=== PATIENT | male | born 1945 | race Caucasian/White ===

== ENCOUNTER 2016-12-15 08:46 | Outpatient (CLI) | payer MEDICARE ==
--- NOTE | ~2016-12-15 | HEMODYNAMI ---
PATIENT:LA NENA MCKAY PROSPER MEDICAL RECORD: [id number] : 49 LOCATION:[address] ADMISSION DATE: 12/15/16 Generatedon:12/16/20169:20 Patient name: LA NENA MCKAY Patient #: [id number] SSN: : 1945 Date of study: 12/16/2016 Page: Of Hemodynamic Procedure Report Patient Data Patient Demographics Procedure consent was obtained First Name: LA NENA Gender: Male Last Name: NELY : 1945 [facility] Initial: PROSPER Age: 71 year(s) Patient #: [id number] Race: Unknown Additional ID: [id number] Contact details Address: [address] [place] [address] State: [place] City: [place] Zip code: [address] Admission Admission Data Admission Date: 12/15/2016 Admission Time: 8:46 Room #: 2122 Lab Results Lab Result Date: 12/16/2016 Lab Result Time: 0:00 CBC Name Units Result Min Max Hemoglobin g/dl 16.5 --(--*-)-- 13.5 17.5 Procedure Procedure Types Cath Procedure PCI Procedure Coronary Stent Initial Miscellaneous Procedures Moderate Sedation up to 15 minutes Procedure Description Procedure Date Procedure Date: 12/16/2016 Procedure Start Time: 9:06 Procedure End Time: 9:19 Procedure Staff Name Function Richardson Freeman MD Performing Physician Aleida Little RT Scrub Yomi Oconnell RN Nurse Ryan Hancock RT Monitor Procedure Data Cath Procedure Fluoroscopy Diagnostic fluoroscopy Total fluoroscopy Time: 3 time: 3 min min Diagnostic fluoroscopy Total fluoroscopy dose: 501 dose: 501 mGy mGy Contrast Material Contrast Material Type Amount (ml) Isovue 300 76 Entry Location Entry Primary Successful Side Size Upsize Upsize Entry Closure Succes sful Closure Location (Fr) 1 (Fr) 2 (Fr) Remarks Device Remarks Femoral Right 6 Fr Exoseal artery Short Estimated blood loss: 10 ml Procedure Complications No complications Procedure Medications Medication Administration Route Dosage 0.9% NaCl I.V. 100 ml/hr Oxygen NC 2 l/min Heparin Flush Bag added to field 2 bags (1000units/500ml NS) Lidocaine 2% added to field 20 Versed I.V. 1 mg Fentanyl I.V. 50 mcg Versed I.V. 1 mg Heparin Bolus I.V. 4000 units Nitroglycerin IC/IA I.C. 100 mcg Hemodynamics Rest HGB: 16.5 (g/dl) Heart Rate: 67 (bpm) Snapshots Pre Cath Intra NCS Post Cath Vital Signs Time Heart Resp SPO2 etCO2 NIBP (mmHg) Rhythm Pain Sedation Rate (ipm) (%) (mmHg) Status Level (bpm) 9:00:56 75 19 99 29.4 137/81(102) NSR 0 (11) 10(A) , No pain 9:05:39 65 17 97 29.4 128/76(94) NSR 0 (11) 10(A) , No pain 9:10:19 58 15 97 39.2 133/80(99) NSR 0 (11) 10(A) , No pain 9:14:56 75 16 93 30.9 83/53(62) NSR 0 (11) 9(A) , No pain 9:19:28 73 25 21.1 99/71(89) NSR 0 (11) 9(A) , No pain Medications Time Medication Route Dose Verified Delivered Reason Notes Effectiveness by by 8:59:42 0.9% NaCl I.V. 100 Yomi Yomi Per physician ml/hr Kourtney Oconnell RN RN 8:59:54 Oxygen NC 2 Yomi Yomi Per physician l/min Kourtney Oconnell RN RN 9:00:16 Heparin Flush added 2 Yomi Yomi used for Bag to bags Kourtney Oconnell procedure (1000units/500ml field HOME BHAT NS) 9:00:34 Lidocaine 2% added 20ml Yomi Yomi for local to vial Kourtney Oconnell anesthetic field HOME BHAT 9:05:19 Versed I.V. 1 mg Yomi Yomi for sedation Kourtney Oconnell RN RN 9:05:31 Fentanyl I.V. 50 Yomi Yomi for sedation mcg Kourtney Oconnell RN RN 9:07:00 Versed I.V. 1 mg Yomi Yomi for sedation Kourtney Oconnell RN RN 9:09:25 Heparin Bolus I.V. 4000 Yomi Yomi for units Lorigan Lorigan anticoagulation RN RN 9:13:44 Nitroglycerin I.C. 100 Yomi Bai for IC/IA mcg Kourtney Freeman MD vasodilation quill fixer Log Time Note 8:35:52 Ryan Karissa RT(R) sent for patient. Start room use. 8:42:07 Time tracking: Regular hours 8:42:13 Plan of Care:Hemodynamics will remain stable., Cardiac rhythm will remain stable., Comfort level will be maintained., Respiratory function will remain adequate., Patient/ family verbilizes understanding of procedure., Procedure tolerated without complication., Recovers from procedure without complications.. 8:44:31 H&P Date Dictated: 12/15/2016 Within 30 days and on chart., H&P Addendum completed by physician on day of procedure. (MUST COMPLETE FOR ALL OUTPATIENTS). 8:45:49 Lab Result : Hemoglobin 16.5 g/dl 8:45:57 Lab results completed and on chart. 8:54:16 Patient received from PCU to CCL 1 Alert and oriented. Tansferred to table in Supine position. 8:54:23 Warm blankets applied, and sarai hugger turned on for patient comfort. 8:54:24 Correct patient and procedure confirmed by team. 8:54:25 Signed procedure consent form obtained from patient. 8:54:26 ECG and BP/O2 sat monitors applied to patient. 8:59:42 0.9% NaCl 100 ml/hr I.V. was administered by Yomi Oconnell RN; Per physician; 8:59:54 Oxygen 2 l/min NC was administered by Yomi Oconnell RN; Per physician; 9:00:01 Vital chart was started 9:00:16 Heparin Flush Bag (1000units/500ml NS) 2 bags added to field was administered by Yomi Oconnell RN; used for procedure; 9:00:34 Lidocaine 2% 20ml vial added to field was administered by Yomi Oconnell RN; for local anesthetic; 9:03:13 Baseline sample Acquired. 9:03:18 Rhythm: sinus rhythm 9:03:19 Full Disclosure recording started 9:03:20 Pre-procedure instructions explained to patient. 9:03:21 Pre-op teaching completed and patient verbalized understanding. 9:03:25 Family in patients room. 9:03:27 Patient NPO since Midnight. 9:03:29 Is the patient allergic to Iodine/contrast media? No. 9:03:30 Is patient on blood thinner?Yes 9:03:33 ACC The patient was administered the following blood thiners within the last 24 hours: ACCPlavix 9:03:34 Patient diabetic? Yes. 9:03:35 If diabetic: On Metformin? No 9:03:37 Previous problem with sedation/anesthesia? No ? 9:03:38 Snore? Yes 9:03:39 Sleep apnea? Yes 9:03:40 Deviated septum? No 9:03:41 Opens mouth fully? Yes 9:03:42 Sticks out tongue? Yes 9:03:46 Airway obstruction? Yes Emphysema 9:03:51 Dentures? No ? 9:03:53 Pre procedure: right dorsailis pedis pulse 1+ Palpable, but thready & weak; easily obliterated 9:03:56 Patient pain scale 0/10 ?. 9:04:01 IV patent on arrival in left forearm with 0.9% NaCl at [facility]. 9:04:05 Right groin area was prepped with chlora-prep and draped in sterile fashion 9:04:06 Alarms reviewed by R. N. 9:04:07 Sharps counted by scrub and verified by R.N. 9:04:08 --------ALL STOP TIME OUT------ 9:04:08 Final Timeout: patient, procedure, and site verified with staff and physician. All members of the team are in agreement. 9:04:10 Right groin site verified by team. 9:04:14 Physical assessment completed. ASA score P 2 - A patient with mild systemic disease as per Richardson Freeman MD. 9:04:17 Sedation plan: IV Moderate Sedation Versed, Fentanyl 9:05:19 Versed 1 mg I.V. was administered by Yomi Oconnell RN; for sedation; 9:05:31 Fentanyl 50 mcg I.V. was administered by Yomi Oconnell RN; for sedation; 9:06:17 Procedure started. 9:06:26 Local anesthetic to right femoral artery with Lidocaine 2% by Richardson Freeman MD.INITIAL ACCESS ONLY 9:06:38 A 6 Fr Short sheath was inserted into the Right Femoral artery 9:06:47 Use device set Femoral PCI 9:06:48 Tegaderm 4 x 4 opened to sterile field. 9:06:49 Acist Manifold opened to sterile field. 9:06:51 Acist Syringe opened to sterile field. 9:06:51 Acist Hand Control opened to sterile field. 9:06:52 Bag Decanter opened to sterile field. 9:06:52 Medline Cath Pack opened to sterile field. 9:06:52 Terumo 6Fr [place] Sheath opened to sterile field. 9:06:53 St Jaren 260cm J .035 wire opened to sterile field. 9:06:53 Merit BasixCompak Inflation Kit opened to sterile field. 9:07:00 Versed 1 mg I.V. was administered by Yomi Oconnell RN; for sedation; 9:07:05 Oconnor Whisper J 300cm 0.014 guide wire opened to sterile field. 9:07:05 Medtronic Launcher 6Fr EBU 4.0 guide catheter opened to sterile field. 9:07:14 Study PCI Site: [place] mCirc has 90% stenosis. 9:07:17 ACC Pre-intervention ROMINA Flow is 3. 9:07:25 6 Fr EBU 4 guide catheter was inserted over the wire 9:07:32 Guide Catheter removed. unable to cannulate vessel. 9:07:44 Medtronic Launcher 6Fr EBU 3.5 SH guide catheter opened to sterile field. 9:07:52 6 Fr EBU 3.5 SH' guide catheter was inserted over the wire 9:09:25 Heparin Bolus 4000 units I.V. was administered by Yomi Oconnell RN; for anticoagulation; 9:09:46 Whisper wire advanced. 9:10:42 Wire advanced across lesion. 9:11:38 Inflation Number: 1 A [place] OTW 2.5 x 22 stent was prepped and advanced across the Mid CX. The stent was deployed at 13 DANIELA for 0:10 (min:sec). 9:11:57 Inflation number: 2 The stent balloon was then re-inflated across the Mid CX to 19 DANIELA for 0:10 (min:sec). 9:13:44 Nitroglycerin IC/IA 100 mcg I.C. was administered by Richardson Freeman MD; for vasodilation; 9:13:51 ACC Post-intervention ROMINA Flow is 3. 9:13:53 Stent catheter was removed intact over wire. 9:13:54 Wire removed. 9:13:55 Guide catheter removed. 9:14:49 Sheath removed intact; hemostasis achieved with Exoseal to the Right Femoral artery. 9:14:53 Procedure ended.(Physican Out) 9:15:05 Fluoroscopy time 03.00 minutes. 9:15:09 Fluoroscopy dose: 501 mGy 9:15:09 Flurop Dose total: 501 9:15:33 Contrast amount:Isovue 300 76ml. 9:15:35 Sharps counted by scrub and verified by R.N. 9:15:37 Insertion/operative site no bleeding no hematoma. 9:15:45 Post-op/insertion site Right Femoral artery dressed using a 4 x 4 and Tegaderm. 9:15:46 Post Procedure Pulses reassessed and unchanged 9:15:49 Post-procedure physical assessment completed. ASA score P 2 - A patient with mild systemic disease as per Richardson Freeman MD. 9:15:52 Post procedure rhythm: unchanged. 9:15:56 Estimated blood loss: 10 ml 9:15:58 Post procedure instruction explained to patient.Patient verbalizes understanding. 9:15:59 Patient needs reinforcement of post procedure teaching. 9:16:09 Procedure type changed to Cath procedure, PCI procedure, Coronary Stent Initial, Miscellaneous Procedures, Moderate Sedation up to 15 minutes 9:16:10 Procedure and supply charges have been captured, reviewed, submitted and are correct. 9:16:13 Procedure Complication : No complications 9:16:37 Cordis 6Fr Exoseal opened to sterile field. 9:19:19 Vital chart was stopped 9:19:20 See physician's report for complete and final results. 9:19:24 Report given to PCU. 9:19:29 Patient transfered to PCU with Bed. 9:19:31 Procedure ended. 9:19:31 Full Disclosure recording stopped 9:19:34 End room use (Document Last) Intervention Summary Intervention Notes Time ActionType Lesion and Equipment Action# Pressure Duration Attributes Used 9:11:38 Place stent Mid CX [place] OTW 1 13 00:10 2.5 x 22 stent 9:11:57 Reinflate Mid CX Leandro OTW 2 19 00:10 stent 2.5 x 22 balloon stent Device Usage Item Name Manufacture Quantity Catalog Hospital Part Current Minimal Lot# / Number Charge Number Stock Stock Serial# Code Tegaderm 4 1 [id number] 5 x 4 Acist Acist 1 07503 708054 [id number] 156023 5 Manifold [employer] Inc Acist Acist 1 32735 642123 065103 875746 20 Syringe Medical Systems Inc Acist Hand Acist 1 05059 257480 268710 006539 5 Control Medical Systems Inc Bag Microtek 1 2002S 990196 30899 206991 5 Decanter Medical Inc. Medline Cardinal 1 [id number] 120496 18980 342558 5 Cath Pack Health Terumo 6Fr Terumo 1 [id number] 725521 102233 844260 [address] Jaren 1 873207 095877 025666 309960 30 260cm J .035 wire Merit Merit 1 [id number] 697708 868072 405996 15 BasixCompak Medical Inflation Kit Oconnor Oconnor 1 [id number] 059166 022316 476030 5 Whisper J Vascular 300cm 0.014 guide wire Medtronic Medtronic 1 [id number] 314049 60688 911047 1 Launcher 6Fr EBU 4.0 guide catheter Medtronic Medtronic 1 [id number] 430494 07842 385909 1 Launcher 6Fr EBU 3.5 SH guide catheter Leandro OTW Medtronic 1 [id number] 242548 70617 991401 5 [id number] 2.5 x 22 stent Cordis 6Fr Cardinal 1 [id number] 205398 942019 800804 10 [facility] Signature Audit Melvin Stage Time Signature Unsigned Intra-Procedure 12/16/2016 Ryan Hancock 9:20:01 AM RT(R) Signatures Monitor : Ryan Hancock RT Signature : Date : Time : [place] [id number] [place] [id number]
--- NOTE | ~2016-12-15 | HEMODYNAMI ---
PATIENT:LA NENA MCKAY PROSPER MEDICAL RECORD: [id number] : 49 LOCATION:D. D.2122 ADMISSION DATE: 12/15/16 Generatedon:12/15/201611:17 Patient name: LA NENA MCKAY Patient #: [id number] SSN: : 1945 Date of study: 12/15/2016 Page: Of Hemodynamic Procedure Report Patient Data Patient Demographics Procedure consent was obtained First Name: LA NENA Gender: Male Last Name: NELY : 1945 Middle Initial: PROSPER Age: 71 year(s) Patient #: [id number] Race: Unknown Additional ID: [id number] Contact details Address: [address] [place] [address] State: [place] City: [place] Zip code: [address] Admission Admission Data Admission Date: 12/15/2016 Admission Time: 8:46 Procedure Procedure Types Cath Procedure Diagnostic Procedure LHC LHC w/Coronaries PCI Procedure Coronary Stent Initial PTCA Additional Miscellaneous Procedures Moderate Sedation up to 30 minutes Procedure Description Procedure Date Procedure Date: 12/15/2016 Procedure Start Time: 10:48 Procedure End Time: 11:16 Procedure Staff Name Function Richardson Freeman MD Performing Physician Yomi Oconnell RN Nurse Ryan Hancock RT Monitor Aleida Little RT Scrub Samuel Christensen RN Director [employer] Procedure Data Cath Procedure Fluoroscopy Diagnostic fluoroscopy Total fluoroscopy Time: 7.3 time: 7.3 min min Diagnostic fluoroscopy Total fluoroscopy dose: dose: 1221 mGy 1221 mGy Contrast Material Contrast Material Type Amount (ml) Isovue 300 137 Entry Location Entry Primary Successful Side Size Upsize Upsize Entry Closure Goyal ccessful Closure Location (Fr) 1 (Fr) 2 (Fr) Remarks Device Remarks Radial Right 6 Fr Mechanical artery Short Compression Estimated blood loss: 10 ml Diagnostic catheters Device Type Used For End Catheter Placement Diagnostic Terumo 5Fr Procedure Willamina 110cm catheter Diagnostic Infinity 5Fr Procedure AR 2 MOD catheter Procedure Complications No complications Procedure Medications Medication Administration Route Dosage 0.9% NaCl I.V. 100 ml/hr Oxygen NC 2 l/min Lidocaine 2% added to field 20 Heparin Flush Bag added to field 2 bags (1000units/500ml NS) Radial Cocktail added to field 1 syringe (Verapomil 2mg/Nitro 400mcg/Heparin 1500units) Versed I.V. 0.5 mg Fentanyl I.V. 25 mcg Radial Cocktail I.A. 1 syringe (Verapomil 2mg/Nitro 400mcg/Heparin 1500units) Heparin Bolus I.V. 4000 units Integrilin (Bolus I.V. 9.5 ml 2mg/ml) Integrilin (Bolus wasted 0.5 ml 2mg/ml) Plavix P.O. 600 mg Hemodynamics Rest Heart Rate: 59 (bpm) Snapshots Pre Cath Intra NCS Post Cath Vital Signs Time Heart Resp SPO2 etCO2 NIBP (mmHg) Rhythm Pain Sedation Rate (ipm) (%) (mmHg) Status Level (bpm) 10:42:02 58 22 95 31.8 171/40(66) NSR 0 (11) 10(A) , No pain 10:46:51 58 22 98 18.2 163/91(134) NSR 0 (11) 10(A) , No pain 10:51:34 62 20 100 28 115/73(96) NSR 0 (11) 9(A) , No pain 10:56:14 67 19 88 14.4 126/79(91) NSR 0 (11) 9(A) , No pain 11:00:57 67 21 94 34.9 140/81(113) NSR 0 (11) 9(A) , No pain 11:05:40 64 18 95 31.8 112/69(88) NSR 0 (11) 9(A) , No pain 11:10:20 63 17 18.9 114/75(93) NSR 0 (11) 10(A) , No pain 11:15:20 63 17 30.3 Measuring NSR 0 (11) 9(A) , No pain 11:15:38 64 18 32.6 141/86(127) NSR 0 (11) 9(A) , No pain Medications Time Medication Route Dose Verified Delivered Reason Note s Effectiveness by by 10:40:49 0.9% NaCl I.V. 100 Yomi Yomi Per physician ml/hr Kourtney Oconnell RN RN 10:41:00 Oxygen NC 2 l/min Yomi Yomi Per physician Kourtney Oconnell RN RN 10:41:08 Lidocaine 2% added 20ml Yomi Yomi for local to vial Kourtney Oconnell anesthetic field RN RN 10:41:24 Heparin Flush added 2 bags Yomi Yomi used for Bag to Kourtney Oconnell procedure (1000units/500ml field RN RN NS) 10:41:59 Radial Cocktail added 1 Yomi Yomi for (Verapomil to syringe Kourtney Oconnell vasodilation 2mg/Nitro field RN RN 400mcg/Heparin 1500units) 10:48:39 Versed I.V. 0.5 mg Yomi Yomi for Lorigan Kourtney vasodilation RN RN 10:48:52 Fentanyl I.V. 25 mcg Yomi Yomi for sedation Kourtney Oconnell RN RN 10:50:43 Radial Cocktail I.A. 1 Yomi Richardson for (Verapomil syringe Kourtney Freeman MD vasodilation 2mg/Nitro RN 400mcg/Heparin 1500units) 11:00:40 Heparin Bolus I.V. 4000 Yomi Richardson for units Kourtney Freeman MD anticoagulation RN 11:01:00 Integrilin I.V. 9.5 ml Yomi Bai for (Bolus 2mg/ml) Kourtney Freeman MD antiplatelet RN therapy 11:08:20 Integrilin wasted 0.5 ml Yomi Richardson to sharp's (Bolus 2mg/ml) Kourtney Freeman MD RN 11:12:23 Plavix P.O. 600 mg Yomi Richardson for Kourtney Freeman MD antiplatelet RN therapy Procedure Log Time Note 10:15:15 Samuel Christensen RN sent for patient. Start room use. 10:24:16 Time tracking: Regular hours 10:24:20 Plan of Care:Hemodynamics will remain stable., Cardiac rhythm will remain stable., Comfort level will be maintained., Respiratory function will remain adequate., Patient/ family verbilizes understanding of procedure., Procedure tolerated without complication., Recovers from procedure without complications.. 10:31:45 Patient received from Pre/Post Procedure Room to CCL 1 Alert and oriented. Tansferred to table in Supine position. 10:31:46 Warm blankets applied, and sarai hugger turned on for patient comfort. 10:31:47 Correct patient and procedure confirmed by team. 10:31:48 Signed procedure consent form obtained from patient. 10:31:51 ECG and BP/O2 sat monitors applied to patient. 10:40:46 Vital chart was started 10:40:49 0.9% NaCl 100 ml/hr I.V. was administered by Yomi Oconnell RN; Per physician; 10:41:00 Oxygen 2 l/min NC was administered by Yomi Oconnell RN; Per physician; 10:41:08 Lidocaine 2% 20ml vial added to field was administered by Yomi Oconnell RN; for local anesthetic; 10:41:19 Rhythm: sinus rhythm 10:41:20 Full Disclosure recording started 10:41:24 Heparin Flush Bag (1000units/500ml NS) 2 bags added to field was administered by Yomi Oconnell RN; used for procedure; 10:41:28 H&P Date Dictated: 12/01/2016 Within 30 days and on chart., H&P Addendum completed by physician on day of procedure. (MUST COMPLETE FOR ALL OUTPATIENTS). 10:41:29 Pre-procedure instructions explained to patient. 10:41:29 Pre-op teaching completed and patient verbalized understanding. 10:41:31 Family in waiting room. 10:41:32 Patient NPO since Midnight. 10:41:36 Baseline sample Acquired. 10:41:41 Is the patient allergic to Iodine/contrast media? No. 10:41:42 Is patient on blood thinner?No 10:41:59 Radial Cocktail (Verapomil 2mg/Nitro 400mcg/Heparin 1500units) 1 syringe added to field was administered by Yomi Oconnell RN; for vasodilation; 10:42:05 Patient diabetic? Yes. 10:42:07 If diabetic: On Metformin? No 10:42:09 Previous problem with sedation/anesthesia? No ? 10:42:13 Snore? Yes 10:42:16 Sleep apnea? Yes 10:42:18 Deviated septum? No 10:42:19 Opens mouth fully? Yes 10:42:20 Sticks out tongue? Yes 10:42:26 Airway obstruction? Yes Emphysema 10:42:33 Dentures? No ? 10:42:36 Pre procedure: right dorsailis pedis pulse 1+ Palpable, but thready & weak; easily obliterated 10:42:41 Modified Lonnie's test Ulnar < 7 seconds 10:42:43 Patient pain scale 0/10 ?. 10:42:46 IV patent on arrival in left forearm with 0.9% NaCl at [facility]. 10:42:49 Lab results completed and on chart. 10:42:53 Right Radial & Right Groin area was prepped with chlora-prep and draped in sterile fashion 10:42:55 Alarms reviewed by R. N. 10:42:55 Sharps counted by scrub and verified by R.N. 10:43:00 --------ALL STOP TIME OUT------ 10:43:01 Final Timeout: patient, procedure, and site verified with staff and physician. All members of the team are in agreement. 10:43:06 Right Radial & Right Groin site verified by team. 10:43:08 Physical assessment completed. ASA score P 2 - A patient with mild systemic disease as per Richardson Freeman MD. 10:43:13 Sedation plan: IV Moderate Sedation Versed, Fentanyl 10:45:29 Use device set Radial Dx 10:45:30 Tegaderm 4 x 4 opened to sterile field. 10:45:31 Acist Hand Control opened to sterile field. 10:45:31 Acist Manifold opened to sterile field. 10:45:32 Acist Syringe opened to sterile field. 10:45:33 Medline Cath Pack opened to sterile field. 10:45:33 Bag Decanter opened to sterile field. 10:45:34 Terumo 6Fr Slender Glidesheath opened to sterile field. 10:45:34 St Jaren 260cm J .035 wire opened to sterile field. 10:45:34 MBrace Wrist Support opened to sterile field. 10:48:39 Versed 0.5 mg I.V. was administered by Yomi Oconnell RN; for vasodilation; 10:48:42 Procedure started. 10:48:47 Local anesthetic to right radial artery with Lidocaine 2% by Richardson Freeman MD.INITIAL ACCESS ONLY 10:48:52 Fentanyl 25 mcg I.V. was administered by Yomi Oconnell RN; for sedation; 10:49:36 A 6 Fr Short sheath was inserted into the Right Radial artery 10:50:43 Radial Cocktail (Verapomil 2mg/Nitro 400mcg/Heparin 1500units) 1 syringe I.A. was administered by Richardson Freeman MD; for vasodilation; 10:51:01 A Diagnostic Terumo 5Fr Willamina 110cm catheter was advanced over the wire and used for Procedure. 10:51:14 LV angiography performed. 10:51:19 LV gram done using FERNANDO 10:51:34 EF : 55 % 10:51:37 Injector settings: Ml/sec: 7, Volume: 15, 10:52:10 Catheter exchanged over wire. 10:53:10 A Diagnostic Infinity 5Fr AR 2 MOD catheter was advanced over the wire and used for Procedure. 10:54:07 RCA angiography performed. 10:54:52 Catheter exchanged over wire. 10:55:07 Cordis 6FR XB 4.0 guide catheter opened to sterile field. 10:55:17 6 Fr XB 4 guide catheter was inserted over the wire 10:55:28 Guide removed, damaged. 10:55:51 Cordis 6FR XBLAD 4.0 guide catheter opened to sterile field. 10:55:58 6 Fr XBLAD 4 guide catheter was inserted over the wire 10:56:44 LCA angiography performed. 10:56:54 8bit BasixCompak Inflation Kit opened to sterile field. 10:56:55 Oconnor Whisper J 300cm 0.014 guide wire opened to sterile field. 10:59:48 Whisper wire advanced. 10:59:55 Study PCI Site: [place] mLAD has 95% stenosis. 11:00:01 Study PCI Site: [place] dLAD has 95% stenosis. 11:00:03 ACC Pre-intervention ROMINA Flow is 3. 11:00:06 Wire advanced across lesion. 11:00:40 Heparin Bolus 4000 units I.V. was administered by Richardson Freeman MD; for anticoagulation; 11:00:59 Inflation Number: 1 A Pomeroy OTW 2.25 x 08 stent was prepped and advanced across the Dist LAD. The stent was deployed at 21 DANIELA for 0:10 (min:sec). 11:01:00 Integrilin (Bolus 2mg/ml) 9.5 ml I.V. was administered by Richardson Freeman MD; for antiplatelet therapy; 11:01:43 Stent catheter was removed intact over wire. 11:04:29 Inflation Number: 1 A Pomeroy OTW 2.5 x 22 stent was prepped and advanced across the Mid LAD. The stent was deployed at 17 DANIELA for 0:10 (min:sec). 11:05:20 Wire redirected to DIAG. 11:05:22 Stent catheter was removed intact over wire. 11:06:05 Inflation number: 1 A Euphora 1.5 x 6 Balloon was prepped and advanced across the 2nd Diag, then inflated to 21 DANIELA for 0:10 (min:sec). 11:06:42 Multiple inflations made at 21 Atms. 11:07:00 Balloon removed over the wire. 11:07:01 Wire removed. 11:07:02 Guide catheter removed. 11:07:05 ACC Post-intervention ROMINA Flow is 3. 11:07:16 Terumo TR Band Standard opened to sterile field. 11:08:20 Integrilin (Bolus 2mg/ml) 0.5 ml wasted was administered by Richardson Freeman MD; to sharp's; 11:08:39 Sheath removed intact; hemostasis achieved with Mechanical Compression to the Right Radial artery. 11:08:46 Procedure ended.(Physican Out) 11:09:04 TR band inflated with 12cc of air. 11:10:09 Fluoroscopy time 07.30 minutes. 11:10:12 Fluoroscopy dose: 1221 mGy 11:10:12 Flurop Dose total: 1221 11:10:16 Contrast amount:Isovue 300 137ml. 11:10:18 Sharps counted by scrub and verified by R.N. 11:10:20 Insertion/operative site no bleeding no hematoma. 11:10:22 Post Procedure Pulses reassessed and unchanged 11:10:25 Post-procedure physical assessment completed. ASA score P 2 - A patient with mild systemic disease as per Richardson Freeman MD. 11:10:27 Post procedure rhythm: unchanged. 11:10:30 Estimated blood loss: 10 ml 11:10:33 Post procedure instruction explained to patient.Patient verbalizes understanding. 11:10:33 Patient needs reinforcement of post procedure teaching. 11:10:49 Procedure type changed to Cath procedure, Diagnostic procedure, LHC, LHC w/Coronaries, PCI procedure, Coronary Stent Initial, PTCA Additional, Miscellaneous Procedures, Moderate Sedation up to 30 minutes 11:10:52 Procedure Complication : No complications 11:11:42 Procedure and supply charges have been captured, reviewed, submitted and are correct. 11:12:23 Plavix 600 mg P.O. was administered by Richardson Freeman MD; for antiplatelet therapy; 11:16:40 Vital chart was stopped 11:16:41 See physician's report for complete and final results. 11:16:43 Report given to PCU. 11:16:46 Patient transfered to PCU with Bed. 11:16:49 Procedure ended. 11:16:49 Full Disclosure recording stopped 11:16:54 End room use (Document Last) Intervention Summary Intervention Notes Time ActionType Lesion and Equipment Action# Pressure Duration Attributes Used 11:00:59 Place stent Dist LAD Leandro OTW 1 21 00:10 2.25 x 08 stent 11:04:29 Place stent Mid LAD Leandro OTW 1 17 00:10 2.5 x 22 stent 11:06:05 Inflate 2nd Diag Euphora 1 21 00:10 balloon 1.5 x 6 Balloon Device Usage Item Name Manufacture Quantity Catalog Hospital Part Current Minimal Lot# / Number Charge Number Stock Stock Serial# Code Tegade 4 1 [id number] 611535 629801 5 x 4 Acist Hand Acist 1 57853 185180 889958 689020 5 Control Medical Systems Inc Acist Acist 1 54163 895278 921676 488242 5 Manifold Medical Systems Inc Acist Acist 1 60742 652178 632871 501818 20 Syringe Medical Systems Inc Medline Cardinal 1 [id number] 102104 71474 026015 5 Cath Pack Health Bag Microtek 1 2002S 526161 74986 507779 5 Decanter Medical Inc. Terumo 6Fr Terumo 1 [id number] 226110 056465 180056 [address] St Jaren 1 554774 147998 742486 108610 30 260cm J .035 wire MBrace Advanced 1 140-0250-00 533105 49357 590723 5 Wrist Vascular Support Dynamics Diagnostic Terumo 1 99-7920 717828 223961 015900 5 Terumo 5Fr Willam[place] 110cm catheter Diagnostic Cardinal 1 [id number] 252304 261928 419289 20 Purewire 5Fr AR 2 MOD catheter Cordis 6FR Cardinal 1 [id number] 552294 893627 835322 2 XB 4.0 Health guide catheter Cordis 6FR Cardinal 1 [id number] 003394 382227 058415 3 XBLAD 4.0 Health guide catheter [facility] Merit 1 [id number] 408757 643483 230479 15 BasixCurrencyFair Medical Inflation Kit Oconnor Oconnor 1 [id number] 458756 368883 701260 5 Whisper J Vascular 300cm 0.014 guide wire Pomeroy OTW Medtronic 1 [id number] 365225 08126 904567 5 [id number] 2.25 x 08 stent Leandro OTW Medtronic 1 [id number] 060492 18525 535244 5 [id number] 2.5 x 22 stent Euphora 1.5 Medtronic 1 [id number] 679876 591925 517818 5 [id number] x 6 Balloon Terumo TR Terumo 1 [id number] 627995 181069 341846 40 Band Standard Signature Audit [place] Stage Time Signature Unsigned Intra-Procedure 12/15/2016 Ryan Hancock 11:17:15 AM RT(R) Signatures Monitor : Ryan Hancock RT Signature : Date : Time : [id number] [place] [address]
[2016-12-15] MEDS ORDERED: SPIRIVA RESPIMAT4 G1 INH (08:56)
[2016-12-15] MEDS ORDERED: RANEXA1000 MG PO (08:57)
[2016-12-15] MEDS ORDERED: ADVAIR HFA [SP]12 GM INH (08:57)
[2016-12-15] MEDS ORDERED: STARLIX120 MG PO (08:58)
[2016-12-15] MEDS ORDERED: BAYER CHEWABLE81 MG PO (08:58)
[2016-12-15] MEDS ORDERED: TOPROL XL50 MG PO (08:59)
[2016-12-15] MEDS ORDERED: LOSARTAN POTASS25 MG PO (08:59)
[2016-12-15] MEDS ORDERED: NEXIUM40 MG PO (08:59)
[2016-12-15] MEDS ORDERED: JANUVIA100 MG PO (09:00)
[2016-12-15] MEDS ORDERED: EFFEXOR XR150 MG PO (09:00)
[2016-12-15] MEDS ORDERED: SINGULAIR10 MG PO (09:01)
[2016-12-15] MEDS ORDERED: LANTUS INSULIN10 ML SC (09:01)
[2016-12-15] MEDS ORDERED: COREG6.25 MG PO (09:02)
[2016-12-15] MEDS ORDERED: PLAVIX75 MG PO (09:02)
[2016-12-15 09:12] VITALS: BP 177/89; BMI 32.5
[2016-12-15 09:24] LABS: BASOPHILS 0.5 % (0-2); EOSINOPHILS 1.8 % (0-7); HEMATOCRIT 48.6 % (42.0-54.0); HEMOGLOBIN 16.5 g/dL (13.5-17.5); IMMATURE GRANULOCYTES 0.7 % (0-5); LYMPHOCYTES 19.6 % (15-50); MCH 30.2 pg (26.0-34.0); MCV 88.8 fL (80.0-100.0); MEAN PLATELET VOLUME 10.5 fL (7.4-10.4); MONOCYTES 10.3 % (2-11); NEUTROPHILS 67.1 % (40-80); PLATELET COUNT 216 10x3/uL (130-400); RBC 5.47 10x6/uL (4.20-6.10); WBC 8.5 10x3/uL (4.8-10.8)
[2016-12-15 09:50] LABS: ANION GAP 13.1 mmol/L (8-16); CALCIUM 9.5 mg/dL (8.5-10.1); CARBON DIOXIDE 25.8 mmol/L (21.0-32.0); CREATININE - SERUM 1.5 mg/dL (0.6-1.3); POTASSIUM - SERUM 3.9 mmol/L (3.5-5.1)
--- NOTE | 2016-12-15 11:25 | NUR ---
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 RIGHT WRIST STABLE WITH TR BAND INTACT. WILL MONITOR.
[2016-12-15 11:52] VITALS: BP 145/79; BMI 32.5
[2016-12-15 12:14] VITALS: BP 142/81
[2016-12-15 17:13] VITALS: BP 104/66
[2016-12-15 20:12] VITALS: BP 123/75
--- NOTE | 2016-12-15 22:51 | NUR ---
PT LYING ON HIS BACK, EYES CLOSED, RESPIRATIONS EVEN AND UNLABORED. CONTINUE TO MONITOR CLOSELY.
[2016-12-16 00:36] VITALS: BP 107/68
[2016-12-16 04:20] VITALS: BP 172/85
--- NOTE | 2016-12-16 06:37 | NUR ---
PATIENT IS ALERT RESTING IN BED, DENIES NEEDS OR PAIN AT THIS TIME. CALL LIGHT IN REACH.
[2016-12-16 08:14] VITALS: BP 94/54
--- NOTE | 2016-12-16 08:40 | NUR ---
PRE-OPS GIVEN. TO MORTGAGE LOAN ASSISTANT BY BED.
--- NOTE | 2016-12-16 09:36 | NUR ---
BACK FROM STRETCH MACHINE OPERATOR. VS WNL. RIGHT GROIN STABLE WITHOUT BLEEDING OR HEMATOMA NOTED. WILL MONITOR.
--- NOTE | 2016-12-16 13:05 | NUR ---
BED REST UP. GROIN STABLE.
--- NOTE | 2016-12-16 13:37 | NUR ---
IV AND TELEMETRY DCD. DC PLANS GIVEN. UNDERSTANDING VOICED. ESCORTED TO CAR BY W/C.
--- NOTE | 2016-12-25 16:56 | OP ---
PATIENT NAME: LA NENA MCKAY MEDICAL RECORD: [id number] :49 LOCATION:D.CAT ADMISSION DATE: SURGEON: TIN SCOTT MD DATE OF OPERATION: 12/16/2016 PROCEDURES: 1. PTCA and stent of left circumflex. 2. Selective coronary angiography. INDICATION: Angina and coronary artery disease. PROCEDURE IN DETAIL: After informed consent was obtained and after detailed explanation of risks, benefits as well as alternative therapies, the patient elected to proceed with angiogram and angioplasty. The right femoral area was prepped and draped in normal sterile fashion. The right femoral artery was cannulated via modified Seldinger technique with placement of 6-Mexican sheath. All catheters exchanged through this sheath. FINDINGS: The left circumflex has 90% stenosis in the mid vessel. This was addressed with a 2.5 x 22 mm Leandro. Result was 0% residual stenosis. OVERALL IMPRESSION: Successful PTCA and stent of the left circumflex going from 90% initial stenosis to 0% residual. TRANSINT:[id number] Voice Confirmation ID: [id number] DOCUMENT ID: [id number] TIN SCOTT MD at 1656 CC: [id number] DICTATION DATE: 12/16/16917 PACKAGING MANAGER: 12/16/16 1219 [facility] CLI 12/16/16 [id number] [place] [address]
--- NOTE | 2016-12-25 16:56 | DS ---
PATIENT:LA NENA MCKAY :49 MEDICAL RECORD: [id number] DISCHARGE SUMMARY ADMISSION DATE: 12/15/16 DISCHARGE DATE: 12/16/16 DISCHARGE DIAGNOSES: 1. Angina. 2. Coronary artery disease. 3. PTCA and stent in LAD and left circumflex on this admission. HOSPITAL COURSE: Mr. Mckay presents with anginal symptomatology. Found to have 2-vessel coronary artery disease of LAD and circumflex. He underwent successful PTCA and stent of above territories. He had an uneventful postop course. He was discharged home to follow up with [facility] in one month with the addition of aspirin and Plavix to his medical regimen. TRANSINT:[id number] Voice Confirmation ID: [id number] DOCUMENT ID: [id number] TIN SCOTT MD at 1656 CC: [id number] DICTATION DATE: 12/16/16 0919 GEODESIST: 12/16/16 1513 [facility] CLI 12/16/16 [id number] [place] [address]
--- NOTE | 2016-12-25 16:56 | OP ---
PATIENT NAME: LA NENA MCKAY MEDICAL RECORD: [id number] :49 LOCATION:D.CAT ADMISSION DATE: SURGEON: TIN SCOTT MD DATE OF OPERATION: 12/15/2016 PROCEDURES: 1. PTCA stent to LAD. 2. PTCA to LAD diagonal. 3. Left heart catheterization. 4. Selective coronary angiography. 5. Left ventriculogram. INDICATION: Angina and coronary artery disease. PROCEDURE IN DETAIL: After informed consent was obtained and after a detailed explanation of the risks, benefits as well as alternative therapies, the patient elected to proceed with angiogram and angioplasty. The right radial area was prepped and draped in normal sterile fashion. The right radial artery was cannulated via modified Seldinger technique with placement of 6-Malagasy sheath. All catheters exchanged through this sheath. FINDINGS: Left ventriculogram was performed in standard 30-degree FERNANDO view, reveals good cardiac wall motion throughout all segments. Overall ejection fraction estimated at 55-60%. SELECTIVE CORONARY ANGIOGRAPHY: 1. Left main is with no significant angiographic disease. 2. Left anterior descending has previously placed stents in the LAD and LAD diagonal, both have up to 90% in-stent restenosis. 3. Left circumflex has 90% stenosis in the mid vessel. 4. Right coronary has [id number]-rlvvexpa irregularities, but no flow-limiting stenosis. PTCA STENT OF THE LAD: The stents used were 2.25 x 8 and 2.5 x 22, both Leandro stents. The diagonal was ballooned with a 1.5 balloon. Result was 0% residual throughout. OVERALL IMPRESSION: Successful percutaneous transluminal coronary angioplasty stent of the left anterior descending going from 90% initial stenosis to 0% residual stenosis. PLAN: PTCA stent of the left circumflex in the near future. TRANSINT:[id number] Voice Confirmation ID: [id number] DOCUMENT ID: [id number] TIN SCOTT MD at 1653 CC: [id number] DICTATION DATE: 12/15/16 1113 SHINE WORKER: 12/15/16 1126 [facility] CLI 12/16/16 [place] [address]
== END 2016-12-16 13:39 | disposition home or self-care (01) ==
LOC: D.M2 08:46 → D.CATH 08:46 → D.M2 11:08 → D.CLR 15:11 → D.M2 15:12 → D.CATH 12-16 13:39
PROVIDERS: Internal Medicine Interventional Cardiology
DX: I25.119 Atherosclerotic heart disease of native coronary artery with unspecified angina pectoris (principal); Z01.812 Encounter for preprocedural laboratory examination
CPT/HCPCS: 93458; 92921; C9600 ×2

== ENCOUNTER 2017-08-03 15:31 | Emergency (ER) | payer MEDICARE ==
[~2017-08-03] VITALS: Ht 180.3 cm; Wt 109.5 kg
[~2017-08-03 15:31] MED LIST: ADVAIR HFA [SP]12 GM INH; BAYER CHEWABLE81 MG PO; COREG6.25 MG PO; EFFEXOR XR150 MG PO; JANUVIA100 MG PO; LANTUS INSULIN10 ML SC; LOSARTAN POTASS25 MG PO; NEXIUM40 MG PO; PLAVIX75 MG PO; RANEXA1000 MG PO; SINGULAIR10 MG PO; SPIRIVA RESPIMAT4 G1 INH; STARLIX120 MG PO; TOPROL XL50 MG PO
[2017-08-03 15:39] VITALS: Ht 180.3 cm; Wt 109.5 kg
[2017-08-03 16:26] LABS: BASOPHILS 0.4 % (0-2); EOSINOPHILS 1.9 % (0-7); HEMATOCRIT 46.7 % (42.0-54.0); HEMOGLOBIN 15.9 g/dL (13.5-17.5); IMMATURE GRANULOCYTES 0.5 % (0-5); LYMPHOCYTES 18.5 % (15-50); MCH 29.8 pg (26.0-34.0); MCV 87.6 fL (80.0-100.0); MONOCYTES 9.9 % (2-11); NEUTROPHILS 68.8 % (40-80); PLATELET COUNT 217 10x3/uL (130-400); RBC 5.33 10x6/uL (4.20-6.10); WBC 8.3 10x3/uL (4.8-10.8)
[2017-08-03 16:38] LABS: CALC OSMOLALITY 274 mosm/kg (275-300); CALCIUM 9.2 mg/dL (8.5-10.1); CARBON DIOXIDE 28.7 mmol/L (21.0-32.0); CHLORIDE - SERUM 104 mmol/L (98-107); CREATININE - SERUM 1.7 mg/dL (0.6-1.3); POTASSIUM - SERUM 4.5 mmol/L (3.5-5.1); SODIUM 137 mmol/L (136-145); TROPONIN-I < 0.017 ng/mL (0.000-0.060); UREA NITROGEN 17 mg/dL (7-18); eGFR NON AFRICAN AMERICAN 43 mL/min (90-120)
[2017-08-03 16:44] LABS: GLUCOSE 84 mg/dL (74-106)
[2017-08-03 18:39] VITALS: BP 146/94
== END 2017-08-03 18:38 | disposition home or self-care (01) ==
LOC: D.ER 15:31
PROVIDERS: Family Medicine
DX: I95.9 Hypotension, unspecified (principal); Z91.14 Patient's other noncompliance with medication regimen; R06.02 Shortness of breath; R53.1 Weakness; I44.0 Atrioventricular block, first degree; Z86.73 Personal history of transient ischemic attack (TIA), and cerebral infarction without residual deficits; E11.9 Type 2 diabetes mellitus without complications; J44.9 Chronic obstructive pulmonary disease, unspecified; K21.9 Gastro-esophageal reflux disease without esophagitis

== ENCOUNTER 2017-08-18 08:06 | Outpatient (CLI) | payer MEDICARE ==
[~2017-08-18] VITALS: Ht 180.3 cm; Wt 109.1 kg
--- NOTE | ~2017-08-18 | OP ---
PATIENT NAME: LA NENA MCKAY MEDICAL RECORD: [id number] :49 LOCATION:D.CAT ADMISSION DATE: SURGEON: TIN SCOTT MD DATE OF OPERATION: 08/18/2017 PROCEDURES: 1. PTCA stent LAD. 2. PTCA LAD diagonal. 3. Left heart catheterization. 4. Selective coronary angiography. 5. Left ventriculogram. INDICATION: Angina and coronary artery disease. PROCEDURE IN DETAIL: After informed consent was obtained and after a detailed description of risks, benefits as well as alternative therapies, the patient elected to proceed with angiogram and angioplasty. The right femoral area was prepped and draped in normal sterile fashion. Right femoral artery was cannulated via modified Seldinger technique with placement of 6-Ethiopian sheath. All catheters exchanged through this sheath. FINDINGS: The left ventriculogram was performed in the standard 30-degree FERNANDO view, reveals good cardiac wall motion throughout all segments. Overall ejection fraction estimated at 50%. SELECTIVE CORONARY ANGIOGRAPHY: 1. Left main is with no significant angiographic disease. 2. Left anterior descending has multiple previously placed stents. There is an area that is nonstented that has greater than 80% to 90% stenosis. 3. The LAD diagonal has previously placed stents. There is 90% stenosis at the ostium. 4. Left circumflex has moderate irregularities, but no flow-limiting stenosis. 5. Right coronary artery has [id number]-tq-sinmynec irregularities, but no flow-limiting stenosis. PTCA STENT OF THE LAD: The stent used was a 2.75 x 8 mm Weston. The stent balloon was used for ballooning the diagonal that was in-stent restenosis. Result was 0% residual throughout. OVERALL IMPRESSION: Successful percutaneous transluminal coronary angioplasty stent of the left anterior descending going from 90% initial stenosis to 0% residual. TRANSINT:[id number] Voice Confirmation ID: [id number] DOCUMENT ID: [id number] TIN SCOTT MD at 1710 CC: [id number] DICTATION DATE: 08/18/17 1111 RUG RENOVATOR: 08/18/17 1130 [facility] CLI 08/18/17 [place] [address]
--- NOTE | ~2017-08-18 | HEMODYNAMI ---
PATIENT:LA NENA MCKAY PROSPER MEDICAL RECORD: [id number] : 49 LOCATION:[facility] ADMISSION DATE: 08/18/17 Generatedon:08/18/201711:15 Patient name: LA NENA MCKAY Patient #: [id number] SSN: : 1945 Date of study: 08/18/2017 Page: Of Hemodynamic Procedure Report Patient Data Patient Demographics Procedure consent was obtained First Name: LA NENA Gender: Male Last Name: NELY : 1945 Middle Initial: PROSPER Age: 71 year(s) Patient #: [id number] Race: Unknown Additional ID: [id number] Contact details Address: [address] [place] [address] State: [place] City: [place] Zip code: [address] Past Medical History Allergies Allergen Reaction Date Comments Reported Other allergy 08/18/2017 PCN, SULFA Admission Admission Data Admission Date: 08/18/2017 Admission Time: 8:06 Height (in.): 5.11 BSA: 0.34 (m2) Height (cm.): 12.98 BMI: 6462.01 (kg/m2) Weight (lbs.): 240 Weight (kg.): 108.86 Lab Results Lab Result Date: 08/18/2017 Lab Result Time: 0:00 Biochemistry Name Units Result Min Max BUN mg/dl 19 --(----)*- 7 18 Creatinine mg/dl 1.5 --(----)-* 0.6 1.3 CBC Name Units Result Min Max Hemoglobin g/dl 15.6 --(--*-)-- 13.5 17.5 Procedure Procedure Types Cath Procedure Diagnostic Procedure [facility] w/Coronaries Sedation Charges Moderate Sedation up to 15 minutes PCI Procedure Coronary Stent Coronary Stent Initial PTCA PTCA Additional Procedure Description Procedure Date Procedure Date: 08/18/2017 Procedure Start Time: 10:44 Procedure End Time: 11:13 Procedure Staff Name Function Richardson Freeman MD Performing Physician Aleida Little RT Monitor Robby Myrick RT Scrub Hailey George RN Nurse Procedure Data Cath Procedure Fluoroscopy Diagnostic fluoroscopy Total fluoroscopy Time: 7.6 time: 7.6 min min Diagnostic fluoroscopy Total fluoroscopy dose: dose: 1635 mGy 1635 mGy Contrast Material Contrast Material Type Amount (ml) Isovue 370 96 Entry Location Entry Primary Successful Side Size Upsize Upsize Entry Closure Goyal ccessful Closure Location (Fr) 1 (Fr) 2 (Fr) Remarks Device Remarks Radial Right 6 Fr Mechanical artery Short Compression Femoral Right 5 Fr 6 Fr Exoseal artery Short Estimated blood loss: 10 ml Diagnostic catheters Device Type Used For End Catheter Placement DIAGNOSTIC [place] 110cm 5 Procedure Fr catheter ([id number]) MULTIPACK JL 4.0 5Fr Procedure catheter MULTIPACK 3DRC 5Fr Procedure catheter Procedure Complications No complications Procedure Medications Medication Administration Route Dosage Oxygen NC 2 l/min Lidocaine 2% added to field 20 Heparin Flush Bag added to field 2 bags (1000units/500ml NS) 0.9% NaCl I.V. 100 ml/hr Radial Cocktail I.A. 1 syringe (Verapomil 2mg/Nitro 400mcg/Heparin 1500units) Versed I.V. 1 mg Fentanyl I.V. 50 mcg Versed I.V. 1 mg Fentanyl I.V. 50 mcg Heparin Bolus I.V. 4000 units Hemodynamics Rest BSA: 0.34 (m2) HGB: 15.6 (g/dl) O2 Consumption: Estimated: 43.89 (ml/min) O2 Con sumption indexed: Estimated:129.09 (ml/min/m) Heart Rate: 105 (bpm) Snapshots Pre Cath Intra NCS Post Cath Vital Signs Time Heart Resp SPO2 etCO2 NIBP (mmHg) Rhythm Pain Sedation Rate (ipm) (%) (mmHg) Status Level (bpm) 10:21:46 74 17 96 35.9 134/79(98) NSR 0 (11) 10(A) , No pain 10:26:32 73 15 94 35.2 110/68(82) NSR 0 (11) 10(A) , No pain 10:31:17 75 16 94 26.9 111/71(87) NSR 0 (11) 10(A) , No pain 10:36:10 81 17 95 32.9 112/57(96) NSR 0 (11) 10(A) , No pain 10:40:55 76 16 94 26.9 114/74(89) NSR 0 (11) 10(A) , No pain 10:45:44 75 16 94 14.2 114/69(98) NSR 0 (11) 9(A) , No pain 10:50:32 78 13 92 36.7 107/63(93) NSR 0 (11) 9(A) , No pain 10:55:19 77 15 95 14.2 122/64(93) NSR 0 (11) 9(A) , No pain 11:00:12 79 16 94 32.2 124/72(104) NSR 0 (11) 9(A) , No pain 11:05:05 84 17 95 35.9 126/71(93) NSR 0 (11) 9(A) , No pain 11:09:58 87 18 95 26.2 118/65(85) NSR 0 (11) 10(A) , No pain Medications Time Medication Route Dose Verified Delivered Reason Note s Effectiveness by by 10:22:53 Oxygen NC 2 l/min Richardson Buffie used for Pete George RN procedure 10:23:37 Lidocaine 2% added 20ml Richardson Bai for local to vial Pete Freeman MD anesthetic field 10:23:49 Heparin Flush added 2 bags Richardson Bai used for Bag to Pete Freeman MD procedure (1000units/500ml field NS) 10:24:01 0.9% NaCl I.V. 100 Richardsonsean Aranaie used for ml/hr Pete George RN procedure 10:42:55 Versed I.V. 1 mg Richardson Aranaie for sedation Pete George RN 10:43:02 Fentanyl I.V. 50 mcg Richardson Aranaie for sedation Pete George RN 10:45:38 Radial Cocktail I.A. 1 Richardson Richardson for (Verapomil syringe Pete Freeman MD vasodilation 2mg/Nitro 400mcg/Heparin 1500units) 10:49:56 Versed I.V. 1 mg Richardson Buffie for sedation Pete George RN 10:49:59 Fentanyl I.V. 50 mcg Richardson Aranaie for sedation Pete George RN 10:56:54 Heparin Bolus I.V. 4000 Richardson Hart for VERI FIED units Tauth MD George RN anticoagulation WITH DR FREEMAN Procedure Log Time Note 9:59:07 Robby Myrick RT(R) sent for patient. Start room use. 9:59:07 Time tracking: Regular hours (M-F 7:00 - 5:00) 9:59:11 Plan of Care:Hemodynamics will remain stable., Cardiac rhythm will remain stable., Comfort level will be maintained., Respiratory function will remain adequate., Patient/ family verbilizes understanding of procedure., Procedure tolerated without complication., Recovers from procedure without complications.. 9:59:12 Signed procedure consent form obtained from patient. 9:59:21 H&P Date Dictated: 07/20/2017 Within 30 days and on chart., H&P Addendum completed by physician on day of procedure. (MUST COMPLETE FOR ALL OUTPATIENTS). 9:59:40 Patient allergic to Other allergyPCN, SULFA 9:59:46 Patient Height : 5.11 inches 9:59:50 Patient Weight : 240 lbs 10:02:24 Lab Result : BUN 19 mg/dl 10:02:24 Lab Result : Hemoglobin 15.6 g/dl 10:02:24 Lab Result : Creatinine 1.5 mg/dl 10:09:51 Patient received from Pre/Post Procedure Room to CCL 1 Alert and oriented. Tansferred to table in Supine position. 10:09:52 Warm blankets applied, and sarai hugger turned on for patient comfort. 10:09:53 Correct patient and procedure confirmed by team. 10:09:53 ECG and BP/O2 sat monitors applied to patient. 10:20:40 Vital chart was started 10:20:43 Baseline sample Acquired. 10:20:48 Rhythm: sinus rhythm 10:20:49 Full Disclosure recording started 10:20:50 Pre-procedure instructions explained to patient. 10:20:50 Pre-op teaching completed and patient verbalized understanding. 10:20:54 Family in patients room. 10:20:55 Patient NPO since Midnight. 10:20:57 Is the patient allergic to Iodine/contrast media? No. 10:20:58 Is patient on blood thinner?Yes 10:21:01 ACC The patient was administered the following blood thiners within the last 24 hours: ACCPlavix 10:22:53 Oxygen 2 l/min NC was administered by Buffie George RN; used for procedure; 10:23:37 Lidocaine 2% 20ml vial added to field was administered by Richardson Freeman MD; for local anesthetic; 10:23:49 Heparin Flush Bag (1000units/500ml NS) 2 bags added to field was administered by Richardson Freeman MD; used for procedure; 10:24:01 0.9% NaCl 100 ml/hr I.V. was administered by Hailey George RN; used for procedure; 10:24:11 Patient diabetic? Yes. 10:24:13 If diabetic: On Metformin? No 10:24:15 Previous problem with sedation/anesthesia? No ? 10:24:16 Snore? Yes 10:24:16 Sleep apnea? Yes 10:24:18 Deviated septum? No 10:24:18 Opens mouth fully? Yes 10:24:19 Sticks out tongue? Yes 10:24:24 Airway obstruction? Yes COPD 10:24:26 Dentures? No ? 10:24:30 Pre procedure: right dorsailis pedis pulse 2+ Normal; easily identifiable; not easily obliterated 10:24:32 Modified Lonnie's test Ulnar < 7 seconds 10:24:37 Patient pain scale 0/10 ?. 10:24:42 IV patent on arrival in left wrist with 0.9% NaCl at [facility]. 10:24:47 Lab results completed and on chart. 10:24:52 Right Radial & Right Groin area was prepped with chlora-prep and draped in sterile fashion 10:24:53 Alarms reviewed by R. N. 10:24:53 Sharps counted by scrub and verified by R.N. 10:27:05 Use device set Radial Dx or PCI 10:27:07 ACIST Syringe (48749) opened to sterile field. 10:27:07 ACIST Hand Control (68795) opened to sterile field. 10:27:08 ACIST Manifold (93359) opened to sterile field. 10:27:09 Tegaderm 4 x 4 (1626W) opened to sterile field. 10:27:11 Bag Decanter (2001S) opened to sterile field. 10:27:12 Medline Cath Pack ([id number]) opened to sterile field. 10:27:12 DIAGNOSTIC WIRE .035 260cm J wire (266504) opened to sterile field. 10:27:13 MBrace Wrist Support ([id number]) opened to sterile field. 10:27:14 SHEATH 6Fr Prelude Radial ([id number]) opened to sterile field. 10:34:22 Zero performed for pressure channel P1 10:42:24 --------ALL STOP TIME OUT------ 10:42:25 Final Timeout: patient, procedure, and site verified with staff and physician. All members of the team are in agreement. 10:42:27 Right Radial & Right Groin site verified by team. 10:42:30 Physical assessment completed. ASA score P 2 - A patient with mild systemic disease as per Richardson Freeman MD. 10:42:33 Sedation plan: IV Moderate Sedation Medication:Versed, Fentanyl 10:42:55 Versed 1 mg I.V. was administered by Hailey George RN; for sedation; 10:43:02 Fentanyl 50 mcg I.V. was administered by Hailey George RN; for sedation; 10:44:12 Procedure started. 10:44:32 Local anesthetic to right radial artery with Lidocaine 2% by Richardson Freeman MD.INITIAL ACCESS ONLY 10:45:12 A 6 Fr Short sheath was inserted into the Right Radial artery 10:45:28 A DIAGNOSTIC [place] 110cm 5 Fr catheter ([id number]) was advanced over the wire and used for Procedure. 10:45:38 Radial Cocktail (Verapomil 2mg/Nitro 400mcg/Heparin 1500units) 1 syringe I.A. was administered by Richardson Freeman MD; for vasodilation; 10:46:50 LV gram done using FERNANDO 10:46:52 Injector settings: Ml/sec: 5, Volume: 15, 10:47:29 EF : 55 % 10:48:11 Catheter exchanged over wire. 10:48:25 UNABLE TO ENGAGE LT. AND RT 10:49:05 RAFFY 2 OPENED STERILE FIELD 10:49:29 RAFFY 2 ADVANCED FOR PROCEDURE 10:49:56 Versed 1 mg I.V. was administered by Hailey George RN; for sedation; 10:49:59 Fentanyl 50 mcg I.V. was administered by Hailey George RN; for sedation; 10:50:30 RAFFY CATHETER REMOVED 10:50:43 UNABLE TO CANNULATE. WILL GO GROIN 10:50:51 SHEATH 5FR [place] (XAR629) opened to sterile field. 10:51:00 Local anesthetic to right femoral artery with Lidocaine 2% by Richardson Freeman MD.ADDITIONAL ACCESS 10:51:07 Use device set Multipack Set 10:51:12 DIAGNOSTIC Multipack 5Fr catheter set (ES0467) opened to sterile field. 10:51:46 A 5 Fr sheath was inserted into the Right Femoral artery 10:52:02 A MULTIPACK JL 4.0 5Fr catheter was advanced over the wire and used for Procedure. 10:53:32 LCA angiography performed. 10:53:43 A MULTIPACK 3DRC 5Fr catheter was advanced over the wire and used for Procedure. 10:54:34 RCA angiography performed. 10:54:53 Catheter removed. 10:54:55 SHEATH 6FR [place] (XQO340) opened to sterile field. 10:54:55 INFLATOR Merit BasixCompak (MO8140) opened to sterile field. 10:54:56 CHOICE PT Extra Support 182cm wire ([id number]) opened to sterile field. 10:55:43 GUIDE 6FR EBU 3.5 catheter ([id number]) opened to sterile field. 10:55:55 Sheath upsized to a 6 Fr Short. 10:56:53 6 Fr EBU 3.5 guide catheter was inserted over the wire 10:56:54 Heparin Bolus 4000 units I.V. was administered by Hailey George RN; for anticoagulation; VERIFIED WITH DR FREEMAN 10:56:57 Guide catheter removed. 10:57:04 UNABLE TO CANNULATE 10:58:15 GUIDE 6FR EBU 4.5 catheter ([id number]) opened to sterile field. 10:58:30 6 Fr EBU 4.5 guide catheter was inserted over the wire 10:59:13 CHOICE ES 182 wire advanced. 10:59:34 Wire advanced across lesion. 11:01:11 Inflate balloon Inflation number: 1 A EUPHORA 2.5 x 30 Balloon ([id number]) was prepped and advanced across the 1st Diag, then inflated to 13 DANIELA for 0:10 (min:sec). 11:01:28 Inflation number: 2 The EUPHORA 2.5 x 30 Balloon ([id number]) was reinflated across the 1st Diag, to 17 DANIELA for 0:10 (min:sec). 11:01:49 Inflation number: 3 The EUPHORA 2.5 x 30 Balloon ([id number]) was reinflated across the 1st Diag, to 17 DANIELA for 0:10 (min:sec). 11:02:30 Balloon removed over the wire. 11:03:57 Place stent Inflation Number: 1 A JONI RX 2.75 x 08 stent ([id number]) was prepped and advanced across the Mid LAD. The stent was deployed at 7 DANIELA for 0:10 (min:sec). 11:04:18 Wire redirected to DIAG. 11:04:21 Wire redirected to DIAG. 11:05:38 Inflation number: 4 The stent balloon was then re-inflated across the 1st Diag to 0 DANIELA for 0:00 (min:sec). 11:06:38 Stent catheter was removed intact over wire. 11:06:40 Wire removed. 11:06:41 Guide catheter removed. 11:06:48 EXOSEAL 6Fr (EX600) opened to sterile field. 11:07:01 Sheath removed intact; hemostasis achieved with Exoseal to the Right Femoral artery. 11:07:05 Procedure ended.(Physican Out) 11:07:18 Sheath removed intact; hemostasis achieved with Mechanical Compression to the Right Radial artery. 11:09:03 Fluoroscopy time 07.60 minutes. 11:09:08 Fluoroscopy dose: 1635 mGy 11:09:08 Flurop Dose total: 1635 11:09:11 Contrast amount:Isovue 370 96ml. 11:09:12 Sharps counted by scrub and verified by R.N. 11:09:16 TR band inflated with 7cc of air. 11:09:19 Post-op/insertion site Right Femoral artery dressed using a 4 x 4 and Tegaderm. 11:09:22 Post right femoral artery:stable, soft, clean and dry 11:09:28 Post procedure: right dorsailis pedis pulse 2+ Normal; easily identifiable; not easily obliterated. 11:09:30 Post-procedure physical assessment completed. ASA score P 2 - A patient with mild systemic disease as per Richardson Freeman MD. 11:09:33 Post procedure rhythm: unchanged. 11:09:35 Estimated blood loss: 10 ml 11:09:37 Post procedure instruction explained to patient.Patient verbalizes understanding. 11:09:37 Patient needs reinforcement of post procedure teaching. 11:10:15 Procedure type changed to Cath procedure, Diagnostic procedure, LHC, LHC w/Coronaries, Sedation Charges, Moderate Sedation up to 15 minutes, PCI procedure, Coronary Stent, Coronary Stent Initial, PTCA, PTCA Additional 11:13:30 Procedure and supply charges have been captured, reviewed, submitted and are correct. 11:13:32 Procedure Complication : No complications 11:13:35 Vital chart was stopped 11:13:35 See physician's report for complete and final results. 11:13:37 Report given to Pre/Post Procedure Room. 11:13:40 Patient transfered to Pre/Post Procedure Room with Bed. 11:13:45 Procedure ended. 11:13:45 Full Disclosure recording stopped 11:15:01 End room use (Document Last) Intervention Summary Intervention Notes Time ActionType Lesion and Equipment Used Action# Pressure Duration Attributes 11:01:11 Inflate 1st Diag EUPHORA 2.5 x 1 13 00:10 balloon 30 Balloon ([id number]) 11:01:28 Reinflate 1st Diag EUPHORA 2.5 x 2 17 00:10 balloon 30 Balloon ([id number]) 11:01:49 Reinflate 1st Diag EUPHORA 2.5 x 3 17 00:10 balloon 30 Balloon ([id number]) 11:03:57 Place stent Mid LAD JONI RX 2.75 x 1 7 00:10 08 stent ([id number]) 11:05:38 Reinflate 1st Diag JONI RX 2.75 x 4 0 00:00 stent 08 stent balloon ([id number]) Device Usage Item Name Manufacture Quantity Catalog Number Hospital Part Current Minimal Lot# / Charge Number Stock Stock Serial# Code ACIST Syringe Acist 1 76561 688611 001830 167528 20 (58550) Medical [employer] Inc ACIST Hand Acist 1 34240 119514 899608 363123 5 Control (03501) [employer] ACIST Manifold Acist 1 00418 169270 045673 720020 5 (45230) [employer] Systems Inc Tegaderm 4 x 4 3M 1 1626W 072978 942795 436033 5 (1626W) Bag Decanter Microtek 1 697391 34864 938544 5 () Medical Inc. Medline Cath Cardinal 1 [id number] 318742 32220 312089 5 Pack Health ([id number]) DIAGNOSTIC WIRE St Jaren 1 790315 688655 767447 487095 30 .035 260cm J wire (719099) MBrace Wrist Advanced 1 140-0250-00 246166 10464 008746 5 Support Vascular ([id number]) Dynamics SHEATH 6Fr Merit 1 [id number] 647896 974171 967374 5 Prelude Radial Medical ([id number]) DIAGNOSTIC Terumo 1 40-5013 218174 687430 402903 5 [place] 110cm 5 Fr catheter (448132) SHEATH 5FR Terumo 1 [id number] 273539 449030 954158 40 [place] (KTF901) DIAGNOSTIC Cardinal 1 GS5895 447790 83161 001331 30 Multipack 5Fr Health catheter set (AQ8771) MULTIPACK JL Cardinal 1 026751 5 4.0 5Fr Health catheter MULTIPACK 3DRC Cardinal 1 228858 5 5Fr catheter Health SHEATH 6FR Terumo 1 MSF863 052140 242946 926668 40 [place] (ZSU782) INFLATOR Merit Merit 1 YY7343 211119 866027 311195 15 [employer] (BD1246) CHOICE PT Extra [place] 1 [id number] 178315 774835 063697 5 Support 182cm Scientific wire ([id number]) GUIDE 6FR EBU Medtronic 1 [id number] 702927 79576 393924 3 3.5 catheter ([id number]) GUIDE 6FR EBU Medtronic 1 [id number] 003427 37366 714245 0 4.5 catheter ([id number]) EUPHORA 2.5 x Medtronic 1 [id number] 980475 269395 820143 5 30 Balloon ([id number]) JONI RX 2.75 x Medtronic 1 [id number] 357695 5687909 296450 5 [id number] 08 stent ([id number]) EXOSEAL 6Fr Cardinal 1 EX600 721148 077897 669724 10 (EX600) Health Signature Audit [place] Stage Time Signature Unsigned Intra-Procedure 08/18/2017 Aleida Little 11:15:46 AM RT(R) Signatures Monitor : Aleida Little Signature : RT Date : Time : [facility] [address] [facility] [place] [address]
[2017-08-18] MEDS ORDERED: BYDUREON P2 MG/0.65 SC (08:24)
[2017-08-18 08:31] VITALS: BP 166/99; Ht 180.3 cm; Wt 109.1 kg
[2017-08-18 08:39] LABS: BASOPHILS 0.5 % (0-2); EOSINOPHILS 1.7 % (0-7); HEMATOCRIT 45.3 % (42.0-54.0); HEMOGLOBIN 15.6 g/dL (13.5-17.5); IMMATURE GRANULOCYTES 0.5 % (0-5); LYMPHOCYTES 20.5 % (15-50); MCH 29.9 pg (26.0-34.0); MCHC 34.4 g/dL (31.0-37.0); MCV 86.9 fL (80.0-100.0); MEAN PLATELET VOLUME 10.4 fL (7.4-10.4); MONOCYTES 9.1 % (2-11); NEUTROPHILS 67.7 % (40-80); PLATELET COUNT 222 10x3/uL (130-400); RBC 5.21 10x6/uL (4.20-6.10); RDW 13.9 % (11.5-14.5); WBC 8.1 10x3/uL (4.8-10.8)
[2017-08-18 08:53] LABS: CALCIUM 8.6 mg/dL (8.5-10.1); CARBON DIOXIDE 28.3 mmol/L (21.0-32.0); CREATININE - SERUM 1.5 mg/dL (0.6-1.3); POTASSIUM - SERUM 4.3 mmol/L (3.5-5.1)
== END 2017-08-18 15:15 ==
LOC: D.CATH 08:06
PROVIDERS: Internal Medicine Interventional Cardiology
DX: I25.119 Atherosclerotic heart disease of native coronary artery with unspecified angina pectoris (principal); T82.855A Stenosis of coronary artery stent, initial encounter; Z01.812 Encounter for preprocedural laboratory examination
CPT/HCPCS: 92921; 93458; C9600

== ENCOUNTER → 2018-01-05 07:54 | Outpatient (CLI) | payer MEDICARE ==
[2017-08-18 08:31] VITALS: BMI 33.5
[~2018-01-05 07:54] MED LIST changes: +BYDUREON P2 MG/0.65 SC
[2018-01-06 10:17] LABS: IMMUNOGLOBULIN A 243 mg/dL (61-437); IMMUNOGLOBULIN G 1005 mg/dL (700-1600)
[2018-01-08 14:14] LABS: IMMUNOGLOBULIN E 54 IU/mL (0-100)
== END | disposition home or self-care (01) ==
LOC: D.RT 07:54
PROVIDERS: Internal Medicine Pulmonary Disease
DX: J44.9 Chronic obstructive pulmonary disease, unspecified (principal); R93.89 Abnormal findings on diagnostic imaging of other specified body structures

== ENCOUNTER 2018-03-08 12:55 | Emergency (ER) | payer MEDICARE ==
[~2018-03-08] VITALS: Ht 180.3 cm; Wt 109.5 kg
[2018-03-08 13:13] VITALS: Ht 180.3 cm; Wt 109.5 kg
[2018-03-08 13:52] LABS: BASOPHILS 0.3 % (0-2); EOSINOPHILS 1.3 % (0-7); HEMATOCRIT 42.8 % (42.0-54.0); HEMOGLOBIN 14.7 g/dL (13.5-17.5); IMMATURE GRANULOCYTES 0.2 % (0-5); LYMPHOCYTES 17.5 % (15-50); MCH 30.2 pg (26.0-34.0); MCHC 34.3 g/dL (31.0-37.0); MCV 87.9 fL (80.0-100.0); MEAN PLATELET VOLUME 10.9 fL (7.4-10.4); MONOCYTES 10.5 % (2-11); NEUTROPHILS 70.2 % (40-80); PLATELET COUNT 235 10x3/uL (130-400); RBC 4.87 10x6/uL (4.20-6.10); RDW 13.9 % (11.5-14.5); WBC 9.8 10x3/uL (4.8-10.8)
[2018-03-08 14:08] LABS: ALBUMIN 3.1 g/dL (3.4-5.0); ALKALINE PHOSPHATASE 52 U/L (46-116); ALT (SGPT) 20 U/L (10-68); CALC OSMOLALITY 278 mosm/kg (275-300); CALCIUM 8.4 mg/dL (8.5-10.1); CARBON DIOXIDE 25.6 mmol/L (21.0-32.0); CHLORIDE - SERUM 99 mmol/L (98-107); CREATININE - SERUM 1.8 mg/dL (0.6-1.3); GLUCOSE 237 mg/dL (74-106); POTASSIUM - SERUM 4.4 mmol/L (3.5-5.1); PROTEIN - SERUM 6.6 g/dL (6.4-8.2); SODIUM 134 mmol/L (136-145); UREA NITROGEN 20 mg/dL (7-18); eGFR NON AFRICAN AMERICAN 40 mL/min (90-120)
[2018-03-08 14:19] LABS: CKMB 0.7 U/L (0.0-3.6); MAGNESIUM - SERUM 1.7 mg/dL (1.8-2.4)
[2018-03-08 14:20] LABS: TROPONIN-I < 0.017 ng/mL (0.000-0.060)
[2018-03-08 15:42] LABS: APPEARANCE CLEAR (CLEAR); BILIRUBIN NEGATIVE (NEGATIVE); COLOR YELLOW (YELLOW); GLUCOSE 1000 mg/dL (NEGATIVE); KETONE NEGATIVE (NEGATIVE); NITRITE NEGATIVE (NEGATIVE); PROTEIN NEGATIVE (NEGATIVE); SPECIFIC GRAVITY 1.015 (1.005-1.020); UROBILINOGEN NORMAL (NORMAL)
[2018-03-08 16:06] VITALS: BP 118/76
== END 2018-03-08 16:07 | disposition home or self-care (01) ==
LOC: D.ER 12:55
PROVIDERS: Family Medicine
DX: I95.9 Hypotension, unspecified (principal); J44.9 Chronic obstructive pulmonary disease, unspecified; E11.9 Type 2 diabetes mellitus without complications

== ENCOUNTER 2018-06-05 17:28 | Emergency (ER) | payer MEDICARE ==
[~2018-06-05] VITALS: Ht 180.3 cm; Wt 100.9 kg
[2018-06-05 17:34] VITALS: Ht 180.3 cm; Wt 100.9 kg
[2018-06-05] MEDS ORDERED: DILAUDID2 MG PO (18:05)
[2018-06-05 19:41] VITALS: BP 134/74
== END 2018-06-05 19:35 | disposition home or self-care (01) ==
LOC: D.ER 17:28
DX: S42.101A Fracture of unspecified part of scapula, right shoulder, initial encounter for closed fracture (principal); W01.0XXA Fall on same level from slipping, tripping and stumbling without subsequent striking against object, initial encounter; Y93.89 Activity, other specified; Y92.89 Other specified places as the place of occurrence of the external cause; S09.93XA Unspecified injury of face, initial encounter

== ENCOUNTER 2018-06-12 18:06 | Inpatient (IN) | payer MEDICARE ==
[2018-06-12] VITALS (7 sets, daily range): BP systolic 100–153; BP diastolic 81–110; BMI 30.9
--- NOTE | ~2018-06-12 | HEMODYNAMI ---
PATIENT:LA NENA MCKAY PROSPER MEDICAL RECORD: [id number] : 49 LOCATION:[facility] D[facility] ADMISSION DATE: 06/12/18 Generatedon:06/13/201816:00 Patient name: LA NENA MCKAY Patient #: [id number] SSN: : 1945 Date of study: 06/13/2018 Page: Of Hemodynamic Procedure Report Patient Data Patient Demographics Procedure consent was obtained First Name: LA NENA Gender: Male Last Name: NELY : 1945 [facility] Initial: PROSPER Age: 72 year(s) Patient #: [id number] Race: Unknown Additional ID: [id number] Contact details [address]: [address] [place] [address] State: [place] City: [place] Zip code: [address] Past Medical History Allergies Allergen Reaction Date Comments Reported Other allergy 08/18/2017 PCN, SULFA Penicillins 06/13/2018 Sulfa drugs 06/13/2018 Admission Admission Data Admission Date: 06/12/2018 Admission Time: 20:02 Admit Source: Other Room #: D2312 Procedure Procedure Types Cath Procedure Diagnostic Procedure LHC LH w/Coronaries FFR/IVUS Intra-Coronary IVUS Initial Sedation Charges Moderate Sedation up to 15 minutes PCI Procedure Coronary Stent Coronary Stent Initial Procedure Description Procedure Date Procedure Date: 06/13/2018 Procedure Start Time: 15:40 Procedure End Time: 15:59 Procedure Staff Name Function Richardson Freeman MD Performing Physician Payton Tenorio RT Monitor Robby Myrick RT Scrub Magdalena Gray RN Nurse Procedure Data Cath Procedure Fluoroscopy Diagnostic fluoroscopy Total fluoroscopy Time: 4 time: 4 min min Diagnostic fluoroscopy Total fluoroscopy dose: 488 dose: 488 mGy mGy Contrast Material Contrast Material Type Amount (ml) Isovue 370 67 Entry Location Entry Primary Successful Side Size Upsize Upsize Entry Closure Succes sful Closure Location (Fr) 1 (Fr) 2 (Fr) Remarks Device Remarks Femoral Right 5 Fr 6 Fr Exoseal artery Short Estimated blood loss: 10 ml Diagnostic catheters Device Type Used For End Catheter Placement MULTIPACK Pigtail 5 Fr LV Angiography catheter MULTIPACK JL 4.0 5Fr Left Coronary catheter Angiography MULTIPACK 3DRC 5Fr Right Coronary catheter Angiography Procedure Complications No complications Procedure Medications Medication Administration Route Dosage 0.9% NaCl I.V. 100 ml/hr Oxygen etCO2 Nasal cannula 2 l/min Lidocaine 2% added to field 20 Heparin Flush Bag added to field 2 bags (1000units/500ml NS) Versed I.V. 2 mg Fentanyl I.V. 50 mcg Versed I.V. 2 mg Fentanyl I.V. 50 mcg Heparin Bolus I.V. 4000 units Hemodynamics Rest Pre Cath Intra NCS Post Cath Vital Signs Time Heart Resp SPO2 etCO2 NIBP (mmHg) Rhythm Pain Sedation Rate (ipm) (%) (mmHg) Status Level (bpm) 15:38:36 72 21 98 30.7 135/84(109) NSR 0 (11) 10(A) , No pain 15:42:52 67 21 98 20 121/79(91) NSR 0 (11) 10(A) , No pain 15:47:04 96 18 97 15.7 117/70(90) NSR 0 (11) 9(A) , No pain 15:51:18 86 19 97 17.9 118/76(90) NSR 0 (11) 9(A) , No pain 15:56:25 89 23 98 32.2 117/74(89) NSR 0 (11) 10(A) , No pain Medications Time Medication Route Dose Verified Delivered Reason Notes Effectiveness by by 15:39:11 0.9% NaCl I.V. 100 Richardson Magdalena used for ml/hr ePte Gray chief vendor quality 15:39:17 Oxygen etCO2 2 Richardson Magdalena used for Nasal l/min Pete Gray procedure cannula RN 15:39:24 Lidocaine 2% added 20ml Richardson Bai for local to vial Pete Freeman MD anesthetic field 15:39:29 Heparin Flush added 2 Richardson Richardson used for Bag to bags Pete Freeman MD procedure (1000units/500ml field NS) 15:39:45 Versed I.V. 2 mg Richardson Magdalena for sedation Pete Gray RN 15:40:08 Fentanyl I.V. 50 Richardson Magdalena for sedation mcg Pete Gray RN 15:45:00 Versed I.V. 2 mg Richardson Nichols for sedation Pete Gray RN 15:45:04 Fentanyl I.V. 50 Richardson Zacariasyla for sedation mcg Pete Gray RN 15:51:03 Heparin Bolus I.V. 4000 Richardson Nichols for verif ied units Pete Gray anticoagulation with Dr. HOME Freeman Procedure Log Time Note 15:11:17 Informed consent obtained and on chart 15:11:20 Admit Source: Other 15:11:37 Diagnostic Cath status Elective 15:16:52 Time tracking: Regular hours (M-F 7:00 - 5:00) 15:16:57 Plan of Care:Hemodynamics will remain stable., Cardiac rhythm will remain stable., Comfort level will be maintained., Respiratory function will remain adequate., Patient/ family verbilizes understanding of procedure., Procedure tolerated without complication., Recovers from procedure without complications.. 15:19:18 Magdalena Gray RN sent for patient. Start room use. 15:27:25 Patient received from ICU to CCL 1 Alert and oriented. Tansferred to table in Supine position. 15:27:26 Warm blankets applied, and sarai hugger turned on for patient comfort. 15:27:27 Correct patient and procedure confirmed by team. 15:27:27 ECG and BP/O2 sat monitors applied to patient. 15:27:28 Full Disclosure recording started 15:37:25 Vital chart was started 15:37:28 Rhythm: sinus rhythm 15:37:39 H&P Date Dictated: 06/12/2018 Within 30 days and on chart.. 15:37:41 Pre-procedure instructions explained to patient. 15:37:41 Pre-op teaching completed and patient verbalized understanding. 15:37:46 Family in patients room. 15:37:47 Patient NPO since Midnight. 15:37:59 Patient allergic to Penicillins 15:38:04 Patient allergic to Sulfa drugs 15:38:06 Is the patient allergic to Iodine/contrast media? No. 15:38:08 Is patient on blood thinner?Yes 15:38:10 ACC The patient was administered the following blood thiners within the last 24 hours: ACCPlavix 15:38:17 Patient diabetic? No. 15:38:22 Previous problem with sedation/anesthesia? No ? 15:38:23 Snore? Yes 15:38:25 Sleep apnea? No 15:38:26 Deviated septum? No 15:38:27 Opens mouth fully? Yes 15:38:28 Sticks out tongue? Yes 15:38:30 Airway obstruction? No ? 15:38:34 Dentures? Yes IN 15:38:48 Pre procedure: right dorsailis pedis pulse 2+ Normal; easily identifiable; not easily obliterated 15:38:53 Patient pain scale 0/10 ?. 15:39:11 0.9% NaCl 100 ml/hr I.V. was administered by Magdalena Gray RN; used for procedure; 15:39:17 Oxygen 2 l/min etCO2 Nasal cannula was administered by Magdalena Gray RN; used for procedure; 15:39:18 IV patent on arrival in left forearm with 0.9% NaCl at [facility]. 15:39:19 Lab results completed and on chart. 15:39:22 Right groin area was prepped with chlora-prep and draped in sterile fashion 15:39:23 Alarms reviewed by R. N. 15:39:23 Sharps counted by scrub and verified by R.N. 15:39:24 Lidocaine 2% 20ml vial added to field was administered by Richardson Freeman MD; for local anesthetic; 15:39:24 Final Timeout: patient, procedure, and site verified with staff and physician. All members of the team are in agreement. 15:39:26 Right groin site verified by team. 15:39:29 Heparin Flush Bag (1000units/500ml NS) 2 bags added to field was administered by Richardson Freeman MD; used for procedure; 15:39:31 Maximum allowable Isovue 370 dose 300ml. Physician notified. (300ml for normal creatinines. For patients with creatinine of 1.7 or higher multiply weight(kg) x 5 divided by creatinine.) 15:39:35 Fire Safety Assessment: A--An alcohol-based skin anteseptic being used preoperatively., C--Open oxygen or nitrous oxide is being used., D--An ESU, laser, or fiber-optic light is being used. 15:39:37 Physical assessment completed. ASA score P 2 - A patient with mild systemic disease as per Richardson Freeman MD. 15:39:40 Sedation plan: IV Moderate Sedation Medication:Versed, Fentanyl 15:39:45 Versed 2 mg I.V. was administered by Magdalena Gray RN; for sedation; 15:40:08 Fentanyl 50 mcg I.V. was administered by Magdalena Gray RN; for sedation; 15:40:18 Procedure started. 15:40:26 Local anesthetic to right femoral artery with Lidocaine 2% by Richardson Freeman MD.INITIAL ACCESS ONLY 15:43:38 A 5 Fr sheath was inserted into the Right Femoral artery 15:43:40 Zero performed for pressure channel P1 15:43:44 Zero performed for pressure channel P1 15:43:48 Zero performed for pressure channel P1 15:43:55 Use device set Femoral Dx 15:43:56 ACIST Syringe (83247) opened to sterile field. 15:43:57 Bag Decanter (2002S) opened to sterile field. 15:43:57 Medline Cath Pack ([id number]) opened to sterile field. 15:43:58 DIAGNOSTIC WIRE .035 260cm J wire (153300) opened to sterile field. 15:43:59 ACIST Hand Control (57593) opened to sterile field. 15:43:59 ACIST Manifold (20853) opened to sterile field. 15:43:59 DIAGNOSTIC Multipack 5Fr catheter set (IT4282) opened to sterile field. 15:44:00 Tegaderm 4 x 4 (1626W) opened to sterile field. 15:44:01 SHEATH 5FR [place] (ZLT206) opened to sterile field. 15:45:00 Versed 2 mg I.V. was administered by Magdalena Gray RN; for sedation; 15:45:04 Fentanyl 50 mcg I.V. was administered by Magdalena Gray RN; for sedation; 15:45:48 A MULTIPACK Pigtail 5 Fr catheter was advanced over the wire and used for LV Angiography. 15:46:19 LV gram done using FERNANDO 15:46:24 EF : 55 % 15:46:28 Injector settings: Ml/sec: 10, Volume: 20, 15:46:29 Catheter removed. 15:46:33 A MULTIPACK JL 4.0 5Fr catheter was advanced over the wire and used for Left Coronary Angiography. 15:47:20 Use device set TAU PCI 15:47:21 SHEATH 6FR [place] (TDR406) opened to sterile field. 15:47:24 INFLATOR Merit BascindyCompak (FT0220) opened to sterile field. 15:47:27 CHOICE PT Extra Support 182cm wire ([id number]) opened to sterile field. 15:47:31 Catheter removed. 15:47:38 A MULTIPACK 3DRC 5Fr catheter was advanced over the wire and used for Right Coronary Angiography. 15:48:40 Barton Lytton Eagleye IVUS Catheter (18185R) opened to sterile field. 15:49:08 Catheter removed. 15:49:15 Sheath upsized to a 6 Fr Short. 15:50:28 GUIDE 6FR HS II catheter ([id number]) opened to sterile field. 15:50:34 6 Fr HS II guide catheter was inserted over the wire 15:50:52 CHOICE PT ES wire advanced. 15:51:03 Heparin Bolus 4000 units I.V. was administered by Magdalena Gray RN; for anticoagulation; verified with Dr. Freeman 15:51:21 Procedure type changed to Cath procedure, Diagnostic procedure, LHC, LHC w/Coronaries, FFR/IVUS, Intra-Coronary IVUS Initial, Sedation Charges, Moderate Sedation up to 15 minutes, PCI procedure, Coronary Stent, Coronary Stent Initial 15:53:47 IVUS catheter advanced over wire. 15:53:50 IVUS pass to RCA lesion performed. 15:53:52 IVUS catheter removed over wire. 15:55:01 WHISPER 190cm wire ([id number]) opened to sterile field. 15:55:37 Place stent Inflation Number: 1 A INTEGRITY 4.0 x 18 stent ([id number]) was prepped and advanced across the Mid RCA. The stent was deployed at 23 DANIELA for 0:10 (min:sec). 15:55:53 Stent catheter was removed intact over wire. 15:55:54 Wire removed. 15:55:55 Guide catheter removed. 15:56:03 Sheath removed intact; hemostasis achieved with Exoseal to the Right Femoral artery. 15:56:05 Procedure ended.(Physican Out) 15:57:17 Fluoroscopy time 04.00 minutes. 15:57:20 Fluoroscopy dose: 488 mGy 15:57:20 Flurop Dose total: 488 15:57:23 Contrast amount:Isovue 370 67ml. 15:57:25 Sharps counted by scrub and verified by R.N. 15:57:26 Insertion/operative site no bleeding no hematoma. 15:57:29 Post-op/insertion site Right Femoral artery dressed using a 4 x 4 and Tegaderm. 15:57:35 Post right femoral artery:stable, clean and dry 15:57:48 Post Procedure Pulses reassessed and unchanged 15:57:50 Post-procedure physical assessment completed. ASA score P 2 - A patient with mild systemic disease as per Richardson Freeman MD. 15:57:52 Post procedure rhythm: unchanged. 15:57:54 Estimated blood loss: 10 ml 15:57:56 Post procedure instruction explained to patient.Patient verbalizes understanding. 15:57:56 Patient needs reinforcement of post procedure teaching. 15:58:02 Procedure Complication : No complications 15:58:04 See physician's report for complete and final results. 15:58:16 EXOSEAL 6Fr (EX600) opened to sterile field. 15:59:04 Procedure and supply charges have been captured, reviewed, submitted and are correct. 15:59:04 Vital chart was stopped 15:59:07 Report given to ICU. 15:59:36 Patient transfered to ICU with Bed. 15:59:39 Procedure ended. 15:59:39 Full Disclosure recording stopped 15:59:42 End room use (Document Last) Intervention Summary Intervention Notes Time ActionType Lesion and Equipment Action# Pressure Duration Attributes Used 15:55:37 Place stent Mid RCA INTEGRITY 1 23 00:10 4.0 x 18 stent ([id number]) Device Usage Item Name Manufacture Quantity Catalog Number Hospital Part Current [facility] Lot# / Charge Number Stock Stock Serial# Code ACIST Acist 1 62997 784291 898588 637290 20 Syringe Medical (55856) Systems Inc Bag Decanter Microtek 1 2001S 033405 82717 692256 5 () Medical Inc. Medline Cath Medline 1 [id number] 397816 17127 168765 5 Pack ([id number]) DIAGNOSTIC St Jaren 1 825183 771125 119523 815747 30 WIRE .035 260cm J wire (434446) ACIST Hand Acist 1 61100 894719 730540 980384 5 Control Medical (87526) Systems Inc ACIST Acist 1 41177 406059 002639 331103 5 Manifold Medical (58486) Systems Inc DIAGNOSTIC Cardinal 1 UW0585 928189 51690 621860 30 Multipack eBuddy 5Fr catheter set (WM1974) Tegaderm 4 x 3M 1 1626W 805722 785531 633494 5 4 (1626W) SHEATH 5FR Terumo 1 LQI730 205094 576603 677077 5 [place] (OXX789) MULTIPACK Cardinal 1 208548 5 Pigtail 5 Fr Health catheter MULTIPACK JL Cardinal 1 117052 5 4.0 5Fr Health catheter SHEATH 6FR Terumo 1 ESJ479 050548 210373 904463 40 [place] (MUB525) INFLATOR Merit 1 QT6424 110922 272996 882577 15 [employer] Medical BasixCompak (TF4864) CHOICE PT [place] 1 [id number] 403752 596039 451222 5 Extra Scientific Support 182cm wire ([id number]) MULTIPACK Cardinal 1 174931 5 3DRC 5Fr Health catheter Barton Barton 1 28218P 534594 253416 543491 8 Lytton Eagleye IVUS Catheter (33960T) GUIDE 6FR HS Medtronic 1 [id number] 817654 68064 003275 1 II catheter (HO3EAIJ) WHISPER [place] 1 [id number] 689447 879863 945516 5 190cm wire Vascular ([id number]) INTEGRITY Medtronic 1 [id number] 013504 831927 864057 5 [id number] 4.0 x 18 stent ([id number]) EXOSEAL 6Fr Cardinal 1 EX600 147105 180210 761489 10 (EX600) Health Signature Audit [place] Stage Time Signature Unsigned Intra-Procedure 06/13/2018 Payton 4:00:00 PM Counts RT(R) Signatures Monitor : Payton Signature : Counts RT Date : Time : [facility] [address] [place] [address]
--- NOTE | ~2018-06-12 | HEMODYNAMI ---
PATIENT:LA NENA MCKAY MEDICAL RECORD: [id number] : [birth year] LOCATION:[facility] D.231 ADMISSION DATE: 06/12/18 Generatedon:06/14/201812:49 Patient name: LA NENA MCKAY Patient #: [id number] SSN: : 1945 Date of study: 06/14/2018 Page: Of Hemodynamic Procedure Report Patient Data Patient Demographics Procedure consent was obtained First Name: LA NENA Gender: Male Last Name: NELY : 1945 [facility] Initial: PROSPER Age: 72 year(s) Patient #: [id number] Race: Unknown Additional ID: [id number] Contact details Address: [address] [place] [address] State: [place] City: [place] Zip code: [address] Past Medical History Allergies Allergen Reaction Date Comments Reported Other allergy 08/18/2017 PCN, SULFA Penicillins 06/13/2018 Sulfa drugs 06/13/2018 Penicillins 06/14/2018 Sulfa drugs 06/14/2018 Admission Admission Data Admission Date: 06/12/2018 Admission Time: 20:02 Admit Source: Other Room #: D.2312 Procedure Procedure Types Cath Procedure PCI Procedure Coronary Stent Coronary Stent Initial PTCA PTCA Additional Coronary Atherectomy Atherectomy w/PTCA Coronary Initial Procedure Description Procedure Date Procedure Date: 06/14/2018 Procedure Start Time: 12:23 Procedure End Time: 12:49 Procedure Staff Name Function Richardson Freeman MD Performing Physician Robby Myrick RT Monitor Aleida Little RT Scrub Magdalena Gray RN Nurse Samuel Christensen RN Automatic Quilling Machine Operator Procedure Data Cath Procedure Fluoroscopy Diagnostic fluoroscopy Total fluoroscopy Time: 6.3 time: 6.3 min min Diagnostic fluoroscopy Total fluoroscopy dose: 761 dose: 761 mGy mGy Contrast Material Contrast Material Type Amount (ml) Isovue 300 75 Entry Location Entry Primary Successful Side Size Upsize Upsize Entry Closure Succes sful Closure Location (Fr) 1 (Fr) 2 (Fr) Remarks Device Remarks Femoral Left 6 Fr Exoseal artery Short Estimated blood loss: 10 ml Procedure Complications No complications Procedure Medications Medication Administration Route Dosage 0.9% NaCl I.V. 100 ml/hr Oxygen etCO2 Nasal cannula 2 l/min Lidocaine 2% added to field 20 Heparin Flush Bag added to field 2 bags (1000units/500ml NS) Versed I.V. 2 mg Fentanyl I.V. 50 mcg Heparin Bolus I.V. 4000 units Fentanyl I.V. 50 mcg Hemodynamics Rest Heart Rate: 117 (bpm) Snapshots Pre Cath Intra NCS Post Cath Vital Signs Time Heart Resp SPO2 etCO2 NIBP Rhythm Pain Sedation Rate (ipm) (%) (mmHg) (mmHg) Status Level (bpm) 12:14:20 87 18 98 34 115/71(85) NSR 0 (11) 10(A) , No pain 12:18:32 92 18 99 3.7 109/69(89) NSR 0 (11) 10(A) , No pain 12:22:44 97 18 98 33.8 116/70(85) NSR 0 (11) 10(A) , No pain 12:26:58 83 16 97 38 106/58(81) NSR 0 (11) 10(A) , No pain 12:31:12 90 18 99 30 104/62(81) NSR 0 (11) 9(A) , No pain 12:35:22 85 19 98 30.8 109/73(94) NSR 0 (11) 9(A) , No pain 12:39:34 96 18 97 29.3 117/74(90) NSR 0 (11) 10(A) , No pain 12:43:43 96 18 94 28.5 119/74(85) NSR 0 (11) 10(A) , No pain 12:47:57 84 18 93 16.5 118/66(98) NSR 0 (11) 10(A) , No pain Medications Time Medication Route Dose Verified Delivered Reason Notes Effectiveness by by 12:16:25 0.9% NaCl I.V. 100 Richardson Magdalena used for ml/hr Pete Gray chief radiation therapist 12:16:31 Oxygen etCO2 2 Richardson Zacariasyla used for Nasal l/min Pete Gray procedure cannula RN 12:16:38 Lidocaine 2% added 20ml Richardson Bai for local to vial Pete Freeman MD anesthetic field 12:16:42 Heparin Flush added 2 Richardson Bai used for Bag to bags Pete Freeman MD procedure (1000units/500ml field NS) 12:22:11 Versed I.V. 2 mg Richardson Magdalena for sedation Pete Gray RN 12:22:25 Fentanyl I.V. 50 Richardson Magdalena for sedation mcg Pete Gray RN 12:25:50 Heparin Bolus I.V. 4000 Richardson Magdalena for verif ied units Pete Gray anticoagulation with Dr. HOME Freeman 12:26:08 Fentanyl I.V. 50 Richardson Magdalena for sedation mcg Pete Gray RN Procedure Log Time Note 11:47:24 Signed procedure consent form obtained from patient. 11:47:25 Time tracking: Regular hours (M-F 7:00 - 5:00) 11:47:28 Plan of Care:Hemodynamics will remain stable., Cardiac rhythm will remain stable., Comfort level will be maintained., Respiratory function will remain adequate., Patient/ family verbilizes understanding of procedure., Procedure tolerated without complication., Recovers from procedure without complications.. 11:47:31 Diagnostic Cath status Elective 11:47:33 Magdalena Gray RN sent for patient. Start room use. 12:02:14 Patient received from ICU to CCL 1 Alert and oriented. Tansferred to table in Supine position. 12:02:15 Warm blankets applied, and sarai hugger turned on for patient comfort. 12:02:16 Correct patient and procedure confirmed by team. 12:02:16 ECG and BP/O2 sat monitors applied to patient. 12:12:06 ----Pre-sedation anethsthesia assessment.---- 12:12:10 Previous problem with sedation/anesthesia? No ? 12:12:12 Snore? Yes 12:12:14 Sleep apnea? No 12:12:16 Deviated septum? No 12:12:19 Opens mouth fully? Yes 12:12:21 Sticks out tongue? Yes 12:12:28 Airway obstruction? Yes copd 12:12:38 Dentures? Yes in 12:13:12 Vital chart was started 12:13:23 H&P Date Dictated: 06/14/2018 Within 30 days and on chart.. 12:13:26 Pre-procedure instructions explained to patient. 12:13:30 Pre-op teaching completed and patient verbalized understanding. 12:13:34 Family in patients room. 12:13:37 Patient NPO since Midnight. 12:14:00 Patient allergic to Penicillins 12:14:16 Patient allergic to Sulfa drugs 12:14:21 Is the patient allergic to Iodine/contrast media? No. 12:14:24 Is patient on blood thinner?Yes 12:14:35 ACC The patient was administered the following blood thiners within the last 24 hours: ACCPlavix 12:14:39 Patient diabetic? No. 12:16:25 0.9% NaCl 100 ml/hr I.V. was administered by Magdalena Gray RN; used for procedure; 12:16:31 Oxygen 2 l/min etCO2 Nasal cannula was administered by Magdalena Gray RN; used for procedure; 12:16:38 Lidocaine 2% 20ml vial added to field was administered by Richardson Freeman MD; for local anesthetic; 12:16:42 Heparin Flush Bag (1000units/500ml NS) 2 bags added to field was administered by Richardson Freeman MD; used for procedure; 12:17:59 Pre procedure: left dorsailis pedis pulse 2+ Normal; easily identifiable; not easily obliterated 12:18:24 Patient pain scale 0/10 ?. 12:18:46 IV patent on arrival in left forearm with 0.9% NaCl at [facility]. 12:20:04 Lab Result : BUN 22 mg/dl 12:20:04 Lab Result : Creatinine 0.9 mg/dl 12:20:04 Lab Result : Hematocrit 40.8 % 12:20:04 Lab Result : Hemoglobin 14.2 g/dl 12:20:06 Lab results completed and on chart. 12:20:11 Left groin area was prepped with chlora-prep and draped in sterile fashion 12:20:12 Alarms reviewed by R. N. 12:20:13 Sharps counted by scrub and verified by R.N. 12:20:16 ACIST Syringe (04562) opened to sterile field. 12:20:17 Bag Decanter (2002S) opened to sterile field. 12:20:17 Medline Cath Pack ([id number]) opened to sterile field. 12:20:18 DIAGNOSTIC WIRE .035 260cm J wire (123255) opened to sterile field. 12:20:19 ACIST Hand Control (32876) opened to sterile field. 12:20:20 ACIST Manifold (24640) opened to sterile field. 12:20:23 Tegaderm 4 x 4 (1626W) opened to sterile field. 12:20:33 Baseline sample Acquired. 12:20:37 Rhythm: sinus rhythm 12:20:39 Full Disclosure recording started 12:: Physician arrived 12:: --------ALL STOP TIME OUT------ 12:: Final Timeout: patient, procedure, and site verified with staff and physician. All members of the team are in agreement. 12:: Left groin site verified by team. 12:: Maximum allowable Isovue 300 dose 300ml. Physician notified. (300ml for normal creatinines. For patients with creatinine of 1.7 or higher multiply weight(kg) x 5 divided by creatinine.) 12:: Fire Safety Assessment: A--An alcohol-based skin anteseptic being used preoperatively., C--Open oxygen or nitrous oxide is being used., D--An ESU, laser, or fiber-optic light is being used. 12:21:30 Sedation plan: IV Moderate Sedation Medication:Versed, Fentanyl 12:22:11 Versed 2 mg I.V. was administered by Magdalena Gray RN; for sedation; 12:22:25 Fentanyl 50 mcg I.V. was administered by Magdalena Gray RN; for sedation; 12:23:05 Zero performed for pressure channel P1 12:23:28 Procedure started. 12:23:31 Local anesthetic to left femerol artery with Lidocaine 2% by Richardson Freeman MD.INITIAL ACCESS ONLY 12:24:53 A 6 Fr Short sheath was inserted into the Left Femoral artery 12:25:07 INFLATOR Merit BasixCompak (BS5927) opened to sterile field. 12:25:24 GUIDE 6FR XBLAD 4.0 catheter ([id number]) opened to sterile field. 12:25:25 CHOICE PT Extra Support 182cm wire ([id number]) opened to sterile field. 12:25:38 6 Fr XBLAD 4 guide catheter was inserted over the wire 12:25:42 CHOICE PT ES wire advanced. 12:25:50 Heparin Bolus 4000 units I.V. was administered by Magdalena Gray RN; for anticoagulation; verified with Dr. Freeman 12:26:08 Fentanyl 50 mcg I.V. was administered by Magdalena Gray RN; for sedation; 12:26:18 Wire advanced across lesion. 12:27:54 Place stent Inflation Number: 1 A INTEGRITY RX 3.0 x 15 stent ([id number]) was prepped and advanced across the Prox CX. The stent was deployed at 13 DANIELA for 0:10 (min:sec). 12:28:24 Stent catheter was removed intact over wire. 12:28:32 Wire redirected to LAD. 12:29:20 Wire advanced across lesion. 12:30:14 LASER ELCA 0.9 Rx atherectomy catheter (551218) opened to sterile field. 12:33:47 LASER CATHETER PREPED AND ADVANCED OVER WIRE 12:33:58 Laser passes to mLAD with Fluence of 80 and Rate of 40. 12:36:41 Laser catheter removed. 12:37:23 Inflate balloon Inflation number: 1 A EUPHORA 2.5 x 20 Balloon ([id number]) was prepped and advanced across the Mid LAD, then inflated to 17 DANIELA for 0:10 (min:sec). 12:37:32 Inflation number: 2 The EUPHORA 2.5 x 20 Balloon ([id number]) was reinflated across the Mid LAD, to 15 DANIELA for 0:10 (min:sec). 12:38:37 Inflation number: 1 The EUPHORA 2.5 x 20 Balloon ([id number]) was reinflated across the 1st Diag, to 13 DANIELA for 0:10 (min:sec). 12:39:02 Balloon removed over the wire. 12:39:02 Wire removed. 12:39:09 Guide catheter removed. 12:39:15 EXOSEAL 6Fr (EX600) opened to sterile field. 12:39:34 Sheath removed intact; hemostasis achieved with Exoseal to the Left Femoral artery. 12:41:22 Procedure ended.(Physican Out) 12:42:00 Fluoroscopy time 06.30 minutes. 12:42:16 Flurop Dose total: 761 12:42:16 Fluoroscopy dose: 761 mGy 12:42:20 Contrast amount:Isovue 300 75ml. 12:42:22 Sharps counted by scrub and verified by R.N. 12:42:33 Insertion/operative site no bleeding no hematoma. 12:42:38 Post-op/insertion site Left Femoral artery dressed using a 4 x 4 and Tegaderm. 12:42:45 Post left femerol artery:stable, soft, clean and dry 12:43:28 Post Procedure Pulses reassessed and unchanged 12:43:43 Post procedure: left dorsailis pedis pulse 2+ Normal; easily identifiable; not easily obliterated. 12:45:16 Post-procedure physical assessment completed. ASA score P 2 - A patient with mild systemic disease as per Richardson Freeman MD. 12:45:22 Post procedure rhythm: sinus rhythm 12:45:26 Estimated blood loss: 10 ml 12:45:27 Post procedure instruction explained to patient.Patient verbalizes understanding. 12:45:27 Patient needs reinforcement of post procedure teaching. 12:46:34 Procedure type changed to Cath procedure, PCI procedure, Coronary Stent, Coronary Stent Initial, PTCA, PTCA Additional, Coronary Atherectomy, Atherectomy w/PTCA Coronary Initial 12:49:05 Procedure Complication : No complications 12:49:07 Vital chart was stopped 12:49:07 See physician's report for complete and final results. 12:49:10 Report given to ICU. 12:49:13 Patient transfered to ICU with Stretcher. 12:49:15 Procedure ended. 12:49:15 Full Disclosure recording stopped 12:49:17 End room use (Document Last) 12:49:30 Laser total pulses delivered: 2800 12:49:36 Laser total treatment time: 1 minutes 10 seconds Intervention Summary Intervention Notes Time ActionType Lesion and Equipment Action# Pressure Duration Attributes Used 12:27:54 Place stent Prox CX INTEGRITY RX 1 13 00:10 3.0 x 15 stent ([id number]) 12:37:23 Inflate Mid LAD EUPHORA 2.5 1 17 00:10 balloon x 20 Balloon ([id number]) 12:37:32 Reinflate Mid LAD EUPHORA 2.5 2 15 00:10 balloon x 20 Balloon ([id number]) 12:38:37 Reinflate 1st Diag EUPHORA 2.5 1 13 00:10 balloon x 20 Balloon ([id number]) Device Usage Item Name Manufacture Quantity Catalog Number Hospital Part Current Mini [facility] Lot# / Charge Number Stock Stock Serial# Code ACIST Acist 1 88859 895890 736318 127349 20 Syringe Medical (59344) Systems Inc Bag Decanter Microtek 1 2001S 186500 88136 295344 5 (2001S) Medical Inc. Medline Cath Medline 1 [id number] 428779 87694 623802 5 Pack (BALZ84340) DIAGNOSTIC St Jaren 1 000922 704046 494297 033015 30 WIRE .035 260cm J wire (983935) ACIST Hand Acist 1 08221 627286 833505 035732 5 Control Medical (88776) Systems Inc ACIST Acist 1 84045 647870 880940 913150 5 Manifold Medical (98884) Systems Inc Tegaderm 4 x 3M 1 1626W 815532 225950 125753 5 4 (1626W) INFLATOR Merit 1 RL9119 878825 575821 789752 15 Between Digital BasixCompak (JG4531) GUIDE 6FR Cardinal 1 29009774 738949 902853 140315 3 XBLAD 4.0 Health catheter (88320264) CHOICE PT Eupora 1 [id number] 330243 208559 387880 5 Extra Scientific Support 182cm wire ([id number]) INTEGRITY RX Medtronic 1 [id number] 604871 615421 040607 5 [id number] 3.0 x 15 stent ([id number]) LASER ELCA Jonny 1 110-004 029829 761678 111813 5 0.9 Rx Ule atherectomy (718699) catheter (802002) EUPHORA 2.5 Medtronic 1 [id number] 077164 756598 006480 5 [id number] x 20 Balloon ([id number]) EXOSEAL 6Fr Cardinal 1 EX600 337026 832824 859608 10 (EX600) Health Signature Audit Drake Stage Time Signature Unsigned Intra-Procedure 06/14/2018 Robby Myrick 12:49:51 PM RT(R) Signatures Monitor : Robby Myrick RT Signature : Date : Time : [facility] [address] [place] [address]
[~2018-06-12 18:06] MED LIST changes: +DILAUDID2 MG PO; -LANTUS INSULIN10 ML SC; +LANTUS SOL100 UNIT/1 SC
[2018-06-12 18:32] LABS: BASOPHILS 0.3 % (0-2); EOSINOPHILS 1.1 % (0-7); HEMATOCRIT 40.8 % (42.0-54.0); HEMOGLOBIN 14.2 g/dL (13.5-17.5); IMMATURE GRANULOCYTES 0.5 % (0-5); LYMPHOCYTES 12.3 % (15-50); MCHC 34.8 g/dL (31.0-37.0); MCV 86.1 fL (80.0-100.0); MONOCYTES 11.8 % (2-11); PLATELET COUNT 244 10x3/uL (130-400); RBC 4.74 10x6/uL (4.20-6.10); RDW 13.8 % (11.5-14.5); WBC 10.4 10x3/uL (4.8-10.8)
[2018-06-12 18:59] LABS: ALBUMIN 2.8 g/dL (3.4-5.0); ALKALINE PHOSPHATASE 61 U/L (46-116); ALT (SGPT) 16 U/L (10-68); BILIRUBIN - TOTAL 0.71 mg/dL (0.2-1.3); CALCIUM 8.7 mg/dL (8.5-10.1); CARBON DIOXIDE 24.2 mmol/L (21.0-32.0); CHLORIDE - SERUM 93 mmol/L (98-107); CKMB 1.2 U/L (0.0-3.6); CREATINE KINASE 74 UL (21-232); CREATININE - SERUM 1.4 mg/dL (0.6-1.3); MAGNESIUM - SERUM 1.9 mg/dL (1.8-2.4); PROTEIN - SERUM 7.5 g/dL (6.4-8.2); SODIUM 129 mmol/L (136-145); UREA NITROGEN 22 mg/dL (7-18); eGFR NON AFRICAN AMERICAN 53 mL/min (90-120)
[2018-06-12 19:13] LABS: CALC OSMOLALITY 289 mosm/kg (275-300); TROPONIN-I < 0.017 ng/mL (0.000-0.060)
[2018-06-12 19:14] LABS: GLUCOSE 604 mg/dL (74-106)
[2018-06-13] VITALS (24 sets, daily range): BP systolic 99–155; BP diastolic 67–100; BMI 30.9
[2018-06-14] VITALS (11 sets, daily range): BP systolic 102–165; BP diastolic 58–94
[2018-06-14 04:45] LABS: BASOPHILS 0.5 % (0-2); EOSINOPHILS 2.7 % (0-7); HEMATOCRIT 35.8 % (42.0-54.0); IMMATURE GRANULOCYTES 0.5 % (0-5); MCH 29.1 pg (26.0-34.0); MCHC 33.5 g/dL (31.0-37.0); MCV 86.9 fL (80.0-100.0); MEAN PLATELET VOLUME 10.7 fL (7.4-10.4); MONOCYTES 10.2 % (2-11); NEUTROPHILS 71.1 % (40-80); RBC 4.12 10x6/uL (4.20-6.10); RDW 14.2 % (11.5-14.5)
[2018-06-14 04:51] LABS: PLATELET COUNT 195 10x3/uL (130-400); WBC 6.7 10x3/uL (4.8-10.8)
[2018-06-14 04:59] LABS: CARBON DIOXIDE 24.1 mmol/L (21.0-32.0); CHLORIDE - SERUM 111 mmol/L (98-107); SODIUM 143 mmol/L (136-145); UREA NITROGEN 18 mg/dL (7-18)
[2018-06-14 05:13] LABS: CALC OSMOLALITY 287 mosm/kg (275-300); CALCIUM 6.9 mg/dL (8.5-10.1); CREATININE - SERUM 0.9 mg/dL (0.6-1.3); GLUCOSE 117 mg/dL (74-106); POTASSIUM - SERUM 3.6 mmol/L (3.5-5.1); eGFR NON AFRICAN AMERICAN 89 mL/min (90-120)
[2018-06-14] MEDS ORDERED: COREG6.25 MG PO (08:32)
[2018-06-14] MEDS ORDERED: NITRO-DUR0.1 MG TRANSDERM (08:33)
[2018-06-14] MEDS ORDERED: TOPROL XL50 MG PO (08:34)
[2018-06-15 00:47] VITALS: BP 152/84
[2018-06-15 04:00] VITALS: BP 169/84
[2018-06-15 06:22] LABS: ANION GAP 13.3 mmol/L (8-16); CALCIUM 8.1 mg/dL (8.5-10.1); CARBON DIOXIDE 24.1 mmol/L (21.0-32.0); CREATININE - SERUM 1.1 mg/dL (0.6-1.3)
[2018-06-15 06:30] LABS: BASOPHILS 0.3 % (0-2); EOSINOPHILS 1.4 % (0-7); HEMATOCRIT 36.5 % (42.0-54.0); HEMOGLOBIN 12.5 g/dL (13.5-17.5); IMMATURE GRANULOCYTES 0.3 % (0-5); LYMPHOCYTES 13.9 % (15-50); MCHC 34.2 g/dL (31.0-37.0); MCV 87.5 fL (80.0-100.0); MEAN PLATELET VOLUME 10.6 fL (7.4-10.4); MONOCYTES 10.7 % (2-11); NEUTROPHILS 73.4 % (40-80); POTASSIUM - SERUM 4.4 mmol/L (3.5-5.1); RBC 4.17 10x6/uL (4.20-6.10); RDW 14.1 % (11.5-14.5)
[2018-06-15 06:34] LABS: PLATELET COUNT 237 10x3/uL (130-400); WBC 8.8 10x3/uL (4.8-10.8)
--- NOTE | 2018-06-15 10:49 | MORECARE ---
CASE MANAGEMENT DISCHARGE SUMMARY PATIENT: LA NENA MCKAY PROSPER UNIT: [id number] ADM DATE: 06/12/18 AGE: 72 : [birth year] SEX: M ROOM/BED: D.2117 AUTHOR: SHANIQUE COLLINS PHYSICIAN: REFERRING PHYSICIAN: SALMA AGUILERA MD DATE OF SERVICE: 06/15/18 Discharge Plan Patient Name: LA NENA MCKAY [facility] [facility] 1945 Planned Disposition: Home Anticipated Discharge Date: Discharge Date: Expected LOS: Initial Reviewer: [email or web address] Initial Review Date: 06/12/2018 Generated: 06/15/18 11:49 am Patient Name: LA NENA MCKAY Page 69920 at 1049 All edits/amendments must be made on the electronic document DICTATION DATE: 06/15/18 1048 GLOBAL ACCOUNT EXECUTIVE: LEE 06/15/18 1048 RPT#: [id number] DC DATE: STATUS: ADM IN [facility] [address] [place] [address] END OF REPORT
--- NOTE | 2018-06-15 10:58 | MORECARE ---
CASE MANAGEMENT DISCHARGE SUMMARY PATIENT: LA NENA MCKAY PROSPER UNIT: [id number] ADM DATE: 06/12/18 AGE: 72 : [birth year] SEX: M ROOM/BED: D.2117 AUTHOR: SHANIQUE COLLINS PHYSICIAN: REFERRING PHYSICIAN: SALMA AGUILERA MD DATE OF SERVICE: 06/15/18 Discharge Plan Patient Name: LA NENA MCKAY [facility] [facility] 1945 Planned Disposition: Home Anticipated Discharge Date: Discharge Date: Expected LOS: Initial Reviewer: [email or web address] Initial Review Date: 06/12/2018 Generated: 06/15/18 11:58 am DCPIA - Discharge Planning Initial Assessment Updated by [email or web address]: Alex Hill on 06/15/18 10:54 am * Is the patient Alert and Oriented? Yes * How many steps to enter\exit or inside your home? 4-I * PCP DR. MANDEL * Pharmacy [facility] * Preadmission Environment Home with Family * ADLs Partial Dependent * Partial ADLs (Assistance needed) Bathing * Equipment Cane Power Chair or Electric Scooter * Other Equipment NO MEDICAL EQUIPMENT PROVIDER PREFERENCE * List name and contact numbers for known caregivers / representatives who currently or will assist patient after discharge: TIMMY MCKAY, SPOUSE, * Verbal permission to speak to the caregivers and representatives has been obtained from the patient. N/A * Community resources currently utilized None * Please name any agencies selected above. NONE * Additional services required to return to the preadmission environment? No * Can the patient safely return to the preadmission environment? Yes * Has this patient been hospitalized within the prior 30 days at any hospital? No Last DP export: 06/15/18 9:49 a Patient Name: LA NENA MCKAY Page 95696 at 1058 All edits/amendments must be made on the electronic document DICTATION DATE: 06/15/18 105 PARTS DRIVER: LEE 06/15/18 1058 RPT#: [id number] DC DATE: STATUS: ADM IN [facility] [address] [place] [address] END OF REPORT
[2018-06-15 11:00] VITALS: BP 124/66
--- NOTE | 2018-06-15 11:07 | MORECARE ---
CASE MANAGEMENT DISCHARGE SUMMARY PATIENT: LA NENA MCKAY PROSPER UNIT: [id number] ADM DATE: 06/12/18 AGE: 72 : 47 SEX: M ROOM/BED: D.6413 AUTHOR: DENNISDOC PHYSICIAN: REFERRING PHYSICIAN: SALMA AGUILERA MD DATE OF SERVICE: 06/15/18 Discharge Plan Patient Name: LA NENA MCKAY Facility: [facility]:[place] : 1945 Planned Disposition: Home Anticipated Discharge Date: Discharge Date: Expected LOS: Initial Reviewer: [email or web address] Initial Review Date: 06/12/2018 Generated: 06/15/18 12:07 pm Comments DCP- Discharge Planning Updated by [email or web address]: Alex Hill on 06/15/18 9:[address] Patient Name: LA NENA MCKAY Admission Status: ER Accout number: [id number] Admission Date: 06-12-2018 : 1945 Admission Diagnosis: Attending: SALMA AGUILERA Current LOS: 3 Anticipated DC Date: Planned Disposition: Home Primary Insurance: [employer] CHOICE PPO MCR ADVANT Discharge Planning Comments: CM MET WITH PT AND SPOUSE IN ROOM TO DISCUSS DISCHARGE PLANNING AND NEEDS. LA NENA MCKAY provided verbal consent to discuss current and ongoing needs with/in the presence of: SPOUSE, TIMMY MCKAY. PT REPORTS LIVING AT HOME INDEPENDENTLY WITH HIS SPOUSE; PT HAS BEEN REQUIRING ASSISTANCE OF SPOUSE FOR BATHING IN HIS WALK IN TUB SINCE HIS FALL AND HURTING HIS SHOULDER. PT HAS CANES AND POWER SCOOTER HE BOUGHT HIMSELF INSURANCE WOULD NOT PAY FOR IT. PT HAS NO MEDICAL EQUIPMENT PROVIDER PREFERENCE. PT HAS NO OUTSIDE SERVICES ASSISTING IN THE HOME. CM DISCUSSED AVAILABILITY OF HOME HEALTH, REHAB SERVICES AND MEDICAL EQUIPMENT. PT HAS NO KNOWN NEEDS RIGHT NOW AND REPORTS HE IS GOING HOME. PT'S SPOUSE THINKS PT MAY DISCHARGE HOME TODAY. PT STATES THAT HE WAS GOING TO CARDIAC REHAB PRIOR TO HIS LAST FALL AND HAD ONE MORE VISIT SCHEDULED AT COMPLETE PULMONARY REHAB. PT'S SPOUSE WILL PICK HIM UP FOR DISCHARGE HOME. PT PLANS TO DISCHARGE HOME WITH SPOUSE WITH NO KNOWN NEEDS AT THIS TIME. CM TO FOLLOW AND ASSIST IF NEEDED. Sybase Developer: Alex Hill DCPIA - Discharge Planning Initial Assessment Updated by [email or web address]: Alex Hill on 06/15/18 10:54 am * Is the patient Alert and Oriented? Yes * How many steps to enter\exit or inside your home? 4--I * PCP DR. MANDEL * Pharmacy [facility] [address] * Preadmission Environment Home with Family * ADLs Partial Dependent * Partial ADLs (Assistance needed) Bathing * Equipment Cane Power Chair or Electric Scooter * Other Equipment NO MEDICAL EQUIPMENT PROVIDER PREFERENCE * List name and contact numbers for known caregivers / representatives who currently or will assist patient after discharge: TIMMY MCKAY, SPOUSE, * Verbal permission to speak to the caregivers and representatives has been obtained from the patient. N/A * Community resources currently utilized None * Please name any agencies selected above. NONE * Additional services required to return to the preadmission environment? No * Can the patient safely return to the preadmission environment? Yes * Has this patient been hospitalized within the prior 30 days at any hospital? No Last DP export: 06/15/18 9:58 a Patient Name: LA NENA MCKAY Page 02488 at 1107 All edits/amendments must be made on the electronic document DICTATION DATE: 06/15/181105 BREASTFEEDING EDUCATOR: LEE 06/15/181105 RPT#: [id number] DC DATE: STATUS: ADM IN [facility] [address] [place] [address] END OF REPORT
[2018-06-15] MEDS ORDERED: COREG12.5 MG PO (14:34)
[2018-06-15] MEDS ORDERED: PLAVIX75 MG PO (14:37)
--- NOTE | 2018-06-15 14:39 | OP ---
PATIENT NAME: LA NENA MCKAY MEDICAL RECORD: [id number] :[birth year] LOCATION:D.M2 D.2117 ADMISSION DATE:06/12/18 SURGEON: TIN SCOTT MD DATE OF OPERATION: 06/13/2018 PROCEDURES: 1. PTCA stent RCA. 2. Left heart catheterization. 3. Selective coronary angiography. 4. Left ventriculogram. 5. Intravascular ultrasound. INDICATION: Angina and coronary artery disease. PROCEDURE: After informed consent was obtained and after a detailed description of risks, benefits as well as alternative therapies, the patient elected to proceed with angiogram and angioplasty. The right femoral area was prepped and draped in normal sterile fashion. Right femoral artery was cannulated via modified Seldinger technique with placement of 6-Afghan sheath. All catheters exchanged through this sheath. FINDINGS: The left ventriculogram was performed in standard 30-degree FERNANDO view reveals preserved cardiac wall motion, ejection fraction 55% to 60%. SELECTIVE CORONARY ANGIOGRAPHY: 1. Left main is with no significant angiographic disease. 2. Left anterior descending has previously placed stents with 90% in-stent restenosis in the mid vessel. 3. Left circumflex has 80% stenosis in the mid vessel. 4. Right coronary has 70% stenosis in the mid vessel confirmed by intravascular ultrasound. The right coronary artery is very large and dominant. PTCA STENT OF THE RCA: The stent used was a 4.0 x 18 mm Integrity taken to 23 atmospheres. Result was 0% residual stenosis. OVERALL IMPRESSION: Successful percutaneous transluminal coronary angioplasty stent of the right coronary artery going from 70% initial stenosis to 0% residual. PLAN: PTCA stent of the LAD and circumflex in the morning. TRANSINT:[id number] Voice Confirmation ID: [id number] DOCUMENT ID: [id number] TIN SCOTT MD at 1439 CC: [id number] DICTATION DATE: 06/13/18 1600 ASSEMBLY MACHINE OFFBEARER: 06/13/18 2310 [place] [address]
--- NOTE | 2018-06-15 14:39 | CN ---
PATIENT NAME:LA NENA MCKAY MEDICAL RECORD: [id number] : 49 LOCATION:D. D.2117 ADMIT DATE: 06/12/18 ACCOUNT: [id number] CONSULTING PHYSICIAN: TIN SCOTT MD REFERRING PHYSICIAN: SALMA AGUILERA MD DATE OF CONSULTATION: 06/13/2018 CARDIOLOGY CONSULT DIAGNOSES: 1. Unstable angina. 2. DKA. 3. Coronary artery disease. 4. Previous PTCA and stent. 5. Hypertension. 6. Hyperlipidemia. 7. Insulin-dependent diabetes. HISTORY: Mr. Mckay presents with unstable anginal chest pain. He was also found to be in DKA. His DKA is being treated. He recently had a fall and a shoulder fracture as well. He has a past history of smoking and he does have COPD. Last cardiac intervention has been a number of years ago. PHYSICAL EXAMINATION: GENERAL APPEARANCE: Well-nourished, well-developed, appears stated age. Level of distress, comfortable. PSYCHIATRIC: Mental status, alert, normal affect. Orientation, oriented to time, place and person. EYES: Lids and conjunctiva, noninjected. No discharge, no pallor. ENT: Lips, teeth, gums, normal dentition. Oropharynx, no cyanosis, no pallor. NECK: Carotid arteries, bilateral normal upstroke, no bruits, no thrills. JUGULAR VEINS: No jugular venous pressure or distention. CERVICAL LYMPH NODES: Nontender, nonenlarged. THYROID: Not enlarged. Nontender. No nodules. LUNGS: Respiratory effort, unlabored. CHEST: Normal curvature. No thoracic deformity. No chest wall tenderness. Percussion, resonant. Auscultation, clear. No wheezes, no rales, no rhonchi. CARDIOVASCULAR: Precordial exam, nondisplaced. No heaves or pericardial thrills. Rate and rhythm, regular. Heart sounds, normal S1, normal S2. No S3, no gallop, no rub. Systolic murmur, not heard. Diastolic murmur, not heard. EXTREMITIES: No cyanosis, no edema. Peripheral pulses, full and equal in all extremities, except as noted. No bruits appreciated. ABDOMEN: Soft, nondistended. Normal aorta. No bruit. Nontender. No masses. Liver, nontender, no hepatomegaly. Spleen, nontender, no splenomegaly. MUSCULOSKELETAL: No joint tenderness. No joint swelling. No erythema. NEUROLOGICAL: Normal gait, normal strength, normal tone. SKIN: Warm and dry. OVERALL IMPRESSION: Unstable anginal symptomatology. Most likely, he has recurrent hemodynamically significant coronary artery disease. We will proceed with coronary angiography. Further care depends upon findings of the angiography. TRANSINT:[id number] Voice Confirmation ID: [id number] DOCUMENT ID: [id number] CONSULT REPORT [id number] LA NENA MCKAY, TIN GORDON at 1439 CC: [id number] DICTATION DATE: 06/13/18 1606 WASHER CUTTER: 06/13/18 2255 ADM IN [facility] [address] [id number]
--- NOTE | 2018-06-15 14:39 | OP ---
PATIENT NAME: LA NENA MCKAY MEDICAL RECORD: [id number] :49 LOCATION:D.M2 D.2117 ADMISSION DATE:06/12/18 SURGEON: TIN SCOTT MD DATE OF OPERATION: 06/14/2018 PROCEDURES: 1. PTCA laser atherectomy LAD. 2. PTCA stent left circumflex. 3. Selective coronary angiography. INDICATION: Angina and coronary artery disease. PROCEDURE IN DETAIL: After informed consent was obtained and after a detailed description of risks, benefits as well as alternative therapies, the patient elected to proceed with angiogram and angioplasty. The left femoral area was prepped and draped in normal sterile fashion. Left femoral artery was cannulated via modified Seldinger technique with placement of 6-Chilean sheath. All catheters exchanged through this sheath. FINDINGS: The left anterior descending has 90% to 95% stenosis that is in-stent restenosis in the mid vessel. This was addressed with a 0.9 laser catheter at 80/40. Multiple passes were made. This was ballooned with a 2.5 mm balloon. Result was 0% residual stenosis. PTCA STENT OF THE LEFT CIRCUMFLEX: The stent used was a 3.0 x 15 mm Integrity. Result was 0% residual stenosis. OVERALL IMPRESSION: Successful percutaneous transluminal coronary angioplasty stent of the left circumflex and laser atherectomy of the left anterior descending going from 80% to 95% percent initial stenosis to 0% residual. TRANSINT:[id number] Voice Confirmation ID: [id number] DOCUMENT ID: [id number] TIN SCOTT MD at 1439 CC: [id number] DICTATION DATE: 06/14/18 1246 TAKER OFF DRYING KILN: 06/14/18 1523 ADM IN [facility] [address] [id number]
[2018-06-15] MEDS ORDERED: COZAAR25 MG PO (15:12)
[2018-06-15] MEDS ORDERED: TOPROL XL50 MG PO (15:13)
[2018-06-15 15:52] VITALS: BP 124/64
[2018-06-15 16:08] VITALS: BP 127/68
--- NOTE | 2018-06-16 08:50 | MORECARE ---
CASE MANAGEMENT DISCHARGE SUMMARY PATIENT: LA NENA MCKAY PROSPER UNIT: [id number] ADM DATE: 06/12/18 AGE: 72 : 49 SEX: M ROOM/BED: D.7432 AUTHOR: DENNISDOC PHYSICIAN: REFERRING PHYSICIAN: SALMA AGUILERA MD DATE OF SERVICE: 06/16/18 Discharge Plan Patient Name: LA NENA MCKAY Facility: [facility]:[place] : 1945 Planned Disposition: Home Anticipated Discharge Date: 06/15/18 Discharge Date: 06/15/2018 Expected LOS: 3 Initial Reviewer: [email or web address] Initial Review Date: 06/12/2018 Generated: 06/16/18 9:49 am DCP- Discharge Planning Updated by [email or web address]: Alex Hill on 06/15/18 9:[address] Patient Name: LA NENA MCKAY Admission Status: ER Accout number: [id number] Admission Date: 06-12-2018 : 1945 Admission Diagnosis: Attending: SALMA AGUILERA Current LOS: 3 Anticipated DC Date: Planned Disposition: Home Primary Insurance: [employer] CHOICE PPO MCR ADVANT Discharge Planning Comments: CM MET WITH PT AND SPOUSE IN ROOM TO DISCUSS DISCHARGE PLANNING AND NEEDS. LA NENA MCKAY provided verbal consent to discuss current and ongoing needs with/in the presence of: SPOUSE, TIMMY MCKAY. PT REPORTS LIVING AT HOME INDEPENDENTLY WITH HIS SPOUSE; PT HAS BEEN REQUIRING ASSISTANCE OF SPOUSE FOR BATHING IN HIS WALK IN TUB SINCE HIS FALL AND HURTING HIS SHOULDER. PT HAS CANES AND POWER SCOOTER HE BOUGHT HIMSELF INSURANCE WOULD NOT PAY FOR IT. PT HAS NO MEDICAL EQUIPMENT PROVIDER PREFERENCE. PT HAS NO OUTSIDE SERVICES ASSISTING IN THE HOME. CM DISCUSSED AVAILABILITY OF HOME HEALTH, REHAB SERVICES AND MEDICAL EQUIPMENT. PT HAS NO KNOWN NEEDS RIGHT NOW AND REPORTS HE IS GOING HOME. PT'S SPOUSE THINKS PT MAY DISCHARGE HOME TODAY. PT STATES THAT HE WAS GOING TO CARDIAC REHAB PRIOR TO HIS LAST FALL AND HAD ONE MORE VISIT SCHEDULED AT COMPLETE PULMONARY REHAB. PT'S SPOUSE WILL PICK HIM UP FOR DISCHARGE HOME. PT PLANS TO DISCHARGE HOME WITH SPOUSE WITH NO KNOWN NEEDS AT THIS TIME. CM TO FOLLOW AND ASSIST IF NEEDED. Mineral Surveying Technician: Alex Hill DCPIA - Discharge Planning Initial Assessment Updated by [email or web address]: Alex Hill on 06/15/18 10:54 am * Is the patient Alert and Oriented? Yes * How many steps to enter\exit or inside your home? 4--I * PCP DR. MANDEL * Pharmacy [facility] [address] * Preadmission Environment Home with Family * ADLs Partial Dependent * Partial ADLs (Assistance needed) Bathing * Equipment Cane Power Chair or Electric Scooter * Other Equipment NO MEDICAL EQUIPMENT PROVIDER PREFERENCE * List name and contact numbers for known caregivers / representatives who currently or will assist patient after discharge: TIMMY MCKAY, SPOUSE, * Verbal permission to speak to the caregivers and representatives has been obtained from the patient. N/A * Community resources currently utilized None * Please name any agencies selected above. NONE * Additional services required to return to the preadmission environment? No * Can the patient safely return to the preadmission environment? Yes * Has this patient been hospitalized within the prior 30 days at any hospital? No Last DP export: 06/15/18 10:07 a Patient Name: LA NENA MCKAY Page [id number] at 0850 All edits/amendments must be made on the electronic document DICTATION DATE: 06/16/18848 CELL SUPPORT OPERATOR: LEE 06/16/18848 RPT#: [id number] DC DATE:06/15/18 STATUS: DIS IN [facility] [address] [place] [address] END OF REPORT
== END 2018-06-15 16:02 | disposition home or self-care (01) | DRG 248 ==
LOC: D.ER 18:06 → D.EDHOLD 18:59 → D.M2 19:48 → D.ICU 20:54 → D.M2 06-14 17:33
PROVIDERS: Family Medicine; Internal Medicine Interventional Cardiology; ADMIT Internal Medicine Nephrology
PROC: B241ZZ3 Ultrasonography of Multiple Coronary Arteries, Intravascular (ICD-10-PCS; 2018-06-13)
PROC: 4A023N7 Measurement of Cardiac Sampling and Pressure, Left Heart, Percutaneous Approach (ICD-10-PCS; 2018-06-13)
PROC: B2011ZZ Plain Radiography of Multiple Coronary Arteries using Low Osmolar Contrast (ICD-10-PCS; 2018-06-13)
PROC: B2051ZZ Plain Radiography of Left Heart using Low Osmolar Contrast (ICD-10-PCS; 2018-06-13)
PROC: 02703DZ Dilation of Coronary Artery, One Artery with Intraluminal Device, Percutaneous Approach (ICD-10-PCS; principal; 2018-06-13 15:19)
PROC: 02703DZ Dilation of Coronary Artery, One Artery with Intraluminal Device, Percutaneous Approach (ICD-10-PCS; 2018-06-14)
PROC: 02C03ZZ Extirpation of Matter from Coronary Artery, One Artery, Percutaneous Approach (ICD-10-PCS; 2018-06-14)
DX: I25.110 Atherosclerotic heart disease of native coronary artery with unstable angina pectoris (principal); E11.10 Type 2 diabetes mellitus with ketoacidosis without coma; S42.91XA Fracture of right shoulder girdle, part unspecified, initial encounter for closed fracture; N17.9 Acute kidney failure, unspecified; E87.1 Hypo-osmolality and hyponatremia; T82.855A Stenosis of coronary artery stent, initial encounter; I12.9 Hypertensive chronic kidney disease with stage 1 through stage 4 chronic kidney disease, or unspecified chronic kidney disease; N18.9 Chronic kidney disease, unspecified; E11.8 Type 2 diabetes mellitus with unspecified complications; E87.5 Hyperkalemia; Z91.19 Patient's noncompliance with other medical treatment and regimen; Z95.5 Presence of coronary angioplasty implant and graft; Y83.8 Other surgical procedures as the cause of abnormal reaction of the patient, or of later complication, without mention of misadventure at the time of the procedure; J43.9 Emphysema, unspecified; X58.XXXA Exposure to other specified factors, initial encounter

== ENCOUNTER 2018-07-28 17:20 | Inpatient (IN) | payer MEDICARE | END 2018-08-02 15:20 | disposition home or self-care (01) | DRG 189 | LOC: D.M2 17:20 | PROVIDERS: ADMIT Family Medicine Adult Medicine | DX: J96.21 Acute and chronic respiratory failure with hypoxia (principal); J98.11 Atelectasis; J47.0 Bronchiectasis with acute lower respiratory infection; J20.9 Acute bronchitis, unspecified; J30.9 Allergic rhinitis, unspecified; I25.10 Atherosclerotic heart disease of native coronary artery without angina pectoris; I10 Essential (primary) hypertension; E11.9 Type 2 diabetes mellitus without complications; Z86.73 Personal history of transient ischemic attack (TIA), and cerebral infarction without residual deficits; G47.33 Obstructive sleep apnea (adult) (pediatric); E11.40 Type 2 diabetes mellitus with diabetic neuropathy, unspecified; K59.00 Constipation, unspecified ==

== ENCOUNTER 2019-03-03 16:38 | Inpatient (IN) | payer MEDICARE ==
[~2019-03-03] VITALS: Ht 177.8 cm; Wt 103.5 kg
[~2019-03-03 16:38] MED LIST changes: +COREG12.5 MG PO; +COZAAR25 MG PO; +IPRAT-ALBUT 0.5-3 ML UPD; +NITRO-DUR0.1 MG TRANSDERM; +STERAPRED DS 1010 MG PO; +ZITHROMAX250 MG PO
[2019-03-03 17:32] LABS: BASOPHILS 0.1 % (0-2); HEMATOCRIT 42.6 % (42.0-54.0); HEMOGLOBIN 14.3 g/dL (13.5-17.5); IMMATURE GRANULOCYTES 0.4 % (0-5); LYMPHOCYTES 16.8 % (15-50); MCH 29.2 pg (26.0-34.0); MCHC 33.6 g/dL (31.0-37.0); MCV 86.9 fL (80.0-100.0); MONOCYTES 7.1 % (2-11); NEUTROPHILS 73.6 % (40-80); PLATELET COUNT 226 10x3/uL (130-400)
[2019-03-03 17:43] LABS: APTT 28.4 SECONDS (22.8-39.4); CALC OSMOLALITY 290 mosm/kg (275-300); CHLORIDE - SERUM 102 mmol/L (98-107); CREATININE - SERUM 1.6 mg/dL (0.6-1.3); INR 1.07 (0.85-1.17); POTASSIUM - SERUM 4.5 mmol/L (3.5-5.1); PROTIME 13.4 SECONDS (11.6-15.0); SODIUM 138 mmol/L (136-145); UREA NITROGEN 19 mg/dL (7-18); eGFR NON AFRICAN AMERICAN 45 mL/min (90-120)
[2019-03-03 17:44] LABS: GLUCOSE 329 mg/dL (74-106)
[2019-03-03 18:04] LABS: ALBUMIN 3.2 g/dL (3.4-5.0); ALKALINE PHOSPHATASE 59 U/L (46-116); ALT (SGPT) 22 U/L (10-68); BILIRUBIN - TOTAL 0.42 mg/dL (0.2-1.3); CKMB 1.2 U/L (0.0-3.6); CREATINE KINASE 64 UL (21-232); MAGNESIUM - SERUM 1.8 mg/dL (1.8-2.4); PROTEIN - SERUM 6.5 g/dL (6.4-8.2)
[2019-03-03 18:11] LABS: TROPONIN-I 0.213 ng/mL (0.000-0.060)
--- NOTE | 2019-03-03 18:12 | NUR ---
CRITICAL LAB: TROPONIN 0.213
--- NOTE | 2019-03-03 19:00 | NUR ---
PT REPORT RECEIVED FROM HOME [facility] USING SBAR COMMUNICATION
--- NOTE | 2019-03-03 19:45 | NUR ---
DR. CERVANTES AT BEDSIDE FOR CONSULT
--- NOTE | 2019-03-03 19:47 | NUR ---
SANDWICH TRAY PROVIDED FOR PT. DENIES ANY OTHER NEEDS AT THIS TIME
--- NOTE | 2019-03-03 20:35 | NUR ---
ADMIT TO ROOM 2125 FROM ER. ALERT/ORIENTED. ACCOMPANIED BY ADULT DAUGHTER. CURRENTLY SITTING UP ON SIDE OF BED AND EATING SANDWICH TRAY. ADMISSION HISTORY AND ASSESSMENT COMPLETED. PLAN OF CARE INITIATED. CALL LIGHT IN REACH.
[2019-03-03 23:30] VITALS: BP 123/67; BMI 32.7
[2019-03-04 00:30] VITALS: BP 131/79
[2019-03-04 00:51] LABS: CKMB 0.7 U/L (0.0-3.6); CREATINE KINASE 63 UL (21-232)
[2019-03-04 00:52] LABS: TROPONIN-I 0.108 ng/mL (0.000-0.060)
[2019-03-04 04:30] VITALS: BP 157/64
[2019-03-04] MEDS ORDERED: ISOSORBIDE MONO30 M1 PO (04:55)
[2019-03-04 05:40] LABS: BASOPHILS 0.3 % (0-2); EOSINOPHILS 2.6 % (0-7); HEMATOCRIT 41.8 % (42.0-54.0); HEMOGLOBIN 13.7 g/dL (13.5-17.5); IMMATURE GRANULOCYTES 0.4 % (0-5); LYMPHOCYTES 24.4 % (15-50); MCH 28.8 pg (26.0-34.0); MCHC 32.8 g/dL (31.0-37.0); MEAN PLATELET VOLUME 10.5 fL (7.4-10.4); MONOCYTES 9.1 % (2-11); NEUTROPHILS 63.2 % (40-80); RBC 4.75 10x6/uL (4.20-6.10); RDW 14.1 % (11.5-14.5); WBC 7.6 10x3/uL (4.8-10.8)
[2019-03-04 05:42] LABS: PLATELET COUNT 176 10x3/uL (130-400)
[2019-03-04 06:12] LABS: CALCIUM 8.7 mg/dL (8.5-10.1); CARBON DIOXIDE 26.6 mmol/L (21.0-32.0); CHLORIDE - SERUM 105 mmol/L (98-107); CKMB 0.8 U/L (0.0-3.6); CREATINE KINASE 62 UL (21-232); CREATININE - SERUM 1.5 mg/dL (0.6-1.3); MAGNESIUM - SERUM 1.9 mg/dL (1.8-2.4); PHOSPHOROUS 3.7 mg/dL (2.5-4.9); POTASSIUM - SERUM 4.1 mmol/L (3.5-5.1); PRO BNP 389 pg/mL (0-125); SODIUM 140 mmol/L (136-145); UREA NITROGEN 23 mg/dL (7-18); eGFR NON AFRICAN AMERICAN 49 mL/min (90-120)
[2019-03-04 06:13] LABS: CALC OSMOLALITY 288 mosm/kg (275-300); GLUCOSE 208 mg/dL (74-106); TROPONIN-I 0.108 ng/mL (0.000-0.060)
--- NOTE | 2019-03-04 07:10 | NUR ---
PT LYING IN BED. EYES CLOSED. CHEST RISING AND FALLING. BED LOW. CL IN REACH. WILL CONTINUE TO MONITOR.
[2019-03-04 07:56] VITALS: BP 114/77
[2019-03-04 08:35] LABS: CKMB 0.7 U/L (0.0-3.6); CREATINE KINASE 62 UL (21-232)
[2019-03-04 08:38] LABS: TROPONIN-I 0.079 ng/mL (0.000-0.060)
[2019-03-04 09:28] VITALS: Ht 177.8 cm; Wt 103.5 kg
--- NOTE | 2019-03-04 10:15 | NUR ---
I have reviewed this patient and I concur with the Shift Assessment completed by the Licensed Practical Nurse today this shift.
--- NOTE | 2019-03-04 10:35 | NUR ---
PT COLLECTED URINE SPECIMEN. URINE SPECIMEN TAKEN TO LAB.
[2019-03-04 11:07] LABS: APPEARANCE CLEAR (CLEAR); COLOR YELLOW (YELLOW); NITRITE NEGATIVE (NEGATIVE); PROTEIN NEGATIVE (NEGATIVE)
[2019-03-04 11:08] LABS: BILIRUBIN NEGATIVE (NEGATIVE); GLUCOSE 500 mg/dL (NEGATIVE); KETONE NEGATIVE (NEGATIVE); UROBILINOGEN NORMAL (NORMAL)
[2019-03-04 11:18] VITALS: BP 105/66
[2019-03-04] MEDS ORDERED: MIRALAX17 GM PO (14:33)
[2019-03-04] MEDS ORDERED: COLACE100 MG PO (14:33)
[2019-03-04 16:02] VITALS: BP 110/62
--- NOTE | 2019-03-04 20:06 | NUR ---
REPORT AND INITIAL ROUNDS COMPLETED. PT RESTING IN BED WITH NO DISTRESS. ALERT/ORIENTED. SR PER TELEMETRY. SALINE LOCK TO LEFT HAND. CPOC. CALL LIGHT IN REACH.
[2019-03-04 20:30] VITALS: BP 94/49
[2019-03-05 04:30] VITALS: BP 97/54
[2019-03-05 05:20] LABS: BASOPHILS 0.2 % (0-2); EOSINOPHILS 2.5 % (0-7); HEMATOCRIT 39.5 % (42.0-54.0); IMMATURE GRANULOCYTES 0.8 % (0-5); LYMPHOCYTES 17.4 % (15-50); MCH 28.9 pg (26.0-34.0); MCHC 32.9 g/dL (31.0-37.0); MCV 87.8 fL (80.0-100.0); MEAN PLATELET VOLUME 10.5 fL (7.4-10.4); MONOCYTES 8.7 % (2-11); NEUTROPHILS 70.4 % (40-80); PLATELET COUNT 203 10x3/uL (130-400); RDW 13.9 % (11.5-14.5); WBC 9.3 10x3/uL (4.8-10.8)
[2019-03-05 05:39] LABS: ANION GAP 10.7 mmol/L (8-16); CALCIUM 8.5 mg/dL (8.5-10.1); CARBON DIOXIDE 26.3 mmol/L (21.0-32.0); CREATININE - SERUM 1.4 mg/dL (0.6-1.3); MAGNESIUM - SERUM 1.7 mg/dL (1.8-2.4); PHOSPHOROUS 4.4 mg/dL (2.5-4.9)
--- NOTE | 2019-03-05 07:31 | NUR ---
PT IN BATHROOM AT THIS TIME.
[2019-03-05 07:59] VITALS: BP 123/75
--- NOTE | 2019-03-05 08:03 | NUR ---
I have reviewed this patient and I concur with the Shift Assessment completed by the Licensed Practical Nurse today this shift.
--- NOTE | 2019-03-05 12:01 | MORECARE ---
CASE MANAGEMENT DISCHARGE SUMMARY PATIENT: LA NENA MCKAY PROSPER UNIT: [id number] ADM DATE: 03/03/19 AGE: 73 : [birth year] SEX: M ROOM/BED: D.2125 AUTHOR: SHANIQUE COLLINS PHYSICIAN: REFERRING PHYSICIAN: HARESH LYMAN MD DATE OF SERVICE: 03/05/19 Discharge Plan Patient Name: LA NENA MCKAY [facility] : 1945 Planned Disposition: Anticipated Discharge Date: Discharge Date: Expected LOS: Initial Reviewer: [email or web address] Initial Review Date: 03/05/2019 Generated: 03/05/19 1:01 pm DCPIA - Discharge Planning Initial Assessment Updated by [email or web address]: Trish Funez on 03/05/19 12:00 pm * Is the patient Alert and Oriented? Yes * How many steps to enter\exit or inside your home? * PCP MANDEL * Pharmacy [facility] * Preadmission Environment Home with Family * ADLs Independent * Other Equipment CPAP, NEBULIZER, 02 CONCENTRATOR, HUMIDIFIER * List name and contact numbers for known caregivers / representatives who currently or will assist patient after discharge: TIMMY MCKAY - SPOUSE - [phone] * Verbal permission to speak to the caregivers and representatives has been obtained from the patient. Yes * Community resources currently utilized None * Additional services required to return to the preadmission environment? No * Can the patient safely return to the preadmission environment? Yes * Has this patient been hospitalized within the prior 30 days at any hospital? No Patient Name: LA NENA MCKAY Page 37231 at 1201 All edits/amendments must be made on the electronic document DICTATION DATE: 03/05/19 1201 FLEET SALESPERSON: LEE 03/05/19 1201 RPT#: [id number] DC DATE: STATUS: ADM IN [facility] [address] [place] [address] END OF REPORT
--- NOTE | 2019-03-05 12:09 | MORECARE ---
CASE MANAGEMENT DISCHARGE SUMMARY PATIENT: LA NENA MCKAY PROSPER UNIT: [id number] ADM DATE: 03/03/19 AGE: 73 : [birth year] SEX: M ROOM/BED: D.8066 AUTHOR: DENNISDOC PHYSICIAN: REFERRING PHYSICIAN: HARESH LYMAN MD DATE OF SERVICE: 03/05/19 Discharge Plan Patient Name: LA NENA MCKAY Facility: [facility]:[place] : 1945 Planned Disposition: Anticipated Discharge Date: Discharge Date: Expected LOS: Initial Reviewer: [email or web address] Initial Review Date: 03/05/2019 Generated: 03/05/19 1:08 pm Comments DCP- Discharge Planning Updated by [email or web address]: Trish Funez on 03/05/19 11:[address] Patient Name: LA NENA MCKAY Admission Status: ER Accout number: [id number] Admission Date: 03-03-2019 : 1945 Admission Diagnosis: Attending: HARESH LYMAN Current LOS: 2 Anticipated DC Date: Planned Disposition: Primary Insurance: [employer] CHOICE PPO MCR ADVANT Discharge Planning Comments: CM met with patient at bedside after explaining CM role and obtaining verbal consent. Patient lives at home with his Timmy where he is independent with his care and plans to return there upon discharge. Patient feels this would be a safe discharge. CM discussed availability / needs of home health and medical equipment. Patient states he has CPAP, nebulizer, 02 concentrator (no portable), and humidifier. Patient denies any discharge needs at this time. Patient states he will have his family drive him home upon discharge. CM will continue to follow and assist as needed with discharge planning / needs. Vocational Rehabilitation Teacher: Trish Funez DCPIA - Discharge Planning Initial Assessment Updated by [email or web address]: Trish Funez on 03/05/19 12:00 pm * Is the patient Alert and Oriented? Yes * How many steps to enter\exit or inside your home? * PCP MANDEL * Pharmacy [facility] * Preadmission Environment Home with Family * ADLs Independent * Other Equipment CPAP, NEBULIZER, 02 CONCENTRATOR, HUMIDIFIER * List name and contact numbers for known caregivers / representatives who currently or will assist patient after discharge: TIMMY MCKAY - SPOUSE - [phone] * Verbal permission to speak to the caregivers and representatives has been obtained from the patient. Yes * Community resources currently utilized None * Additional services required to return to the preadmission environment? No * Can the patient safely return to the preadmission environment? Yes * Has this patient been hospitalized within the prior 30 days at any hospital? No Last DP export: 03/05/19 11:02 am Patient Name: LA NENA MCKAY Page 12084 at 1209 All edits/amendments must be made on the electronic document DICTATION DATE: 03/05/191207 SEALING MACHINE OPERATOR: LEE 03/05/191207 RPT#: [id number] DC DATE: STATUS: ADM IN [facility] [address] [place] [address] END OF REPORT
--- NOTE | 2019-03-05 13:03 | NUR ---
TELEMETRY DC'D. LEFT HAND IV DC'D WITH CATH INTACT. DC INSTRUCTIONS GIVE NTO PT. PT HAS NO FURTHER QUESTIONS. CHART COPY SIGNED.
--- NOTE | 2019-03-05 13:16 | NUR ---
PT TAKEN DOWN VIA WC BY LIVE AND LEFT WITH IN PERSONAL CAR.
--- NOTE | 2019-03-05 19:46 | MORECARE ---
CASE MANAGEMENT DISCHARGE SUMMARY PATIENT: LA NENA MCKAY PROSPER UNIT: [id number] ADM DATE: 03/03/19 AGE: 73 : 47 SEX: M ROOM/BED: D.0263 AUTHOR: DENNIS,DOC PHYSICIAN: REFERRING PHYSICIAN: HARESH LYMAN MD DATE OF SERVICE: 03/05/19 Discharge Plan Patient Name: LA NENA MCKAY Facility: [facility]:[place] : 1945 Planned Disposition: Anticipated Discharge Date: Discharge Date: 03/05/2019 Expected LOS: Initial Reviewer: [email or web address] Initial Review Date: 03/05/2019 Generated: 03/05/19 8:45 pm Comments DCP- Discharge Planning Updated by [email or web address]: Trish Funez on 03/05/19 11:[address] Patient Name: LA NENA MCKAY Admission Status: ER Accout number: [id number] Admission Date: 03-03-2019 : 1945 Admission Diagnosis: Attending: HARESH LYMAN Current LOS: 2 Anticipated DC Date: Planned Disposition: Primary Insurance: [employer] CHOICE PPO MCR ADVANT Discharge Planning Comments: CM met with patient at bedside after explaining CM role and obtaining verbal consent. Patient lives at home with his Timmy where he is independent with his care and plans to return there upon discharge. Patient feels this would be a safe discharge. CM discussed availability / needs of home health and medical equipment. Patient states he has CPAP, nebulizer, 02 concentrator (no portable), and humidifier. Patient denies any discharge needs at this time. Patient states he will have his family drive him home upon discharge. CM will continue to follow and assist as needed with discharge planning / needs. Ecdis N Navigation Operator: Trish Funez DCPIA - Discharge Planning Initial Assessment Updated by [email or web address]: Trish Funez on 03/05/19 12:00 pm * Is the patient Alert and Oriented? Yes * How many steps to enter\exit or inside your home? * PCP MANDEL * Pharmacy [facility] * Preadmission Environment Home with Family * ADLs Independent * Other Equipment CPAP, NEBULIZER, 02 CONCENTRATOR, HUMIDIFIER * List name and contact numbers for known caregivers / representatives who currently or will assist patient after discharge: TIMMY MCKAY - SPOUSE - [phone] * Verbal permission to speak to the caregivers and representatives has been obtained from the patient. Yes * Community resources currently utilized None * Additional services required to return to the preadmission environment? No * Can the patient safely return to the preadmission environment? Yes * Has this patient been hospitalized within the prior 30 days at any hospital? No Last DP export: 03/05/19 11:08 am Patient Name: LA NENA MCKAY Page 65266 at 1946 All edits/amendments must be made on the electronic document DICTATION DATE: 03/05/191944 BRANCH SALES MANAGER: LEE 03/05/191944 RPT#: [id number] DC DATE:03/05/19 STATUS: DIS IN [facility] [address] [place] [address] END OF REPORT
== END 2019-03-05 13:17 | disposition home or self-care (01) | DRG 313 ==
LOC: D.ER 16:38 → D.M2 18:53
PROVIDERS: Family Medicine; ADMIT Family Medicine; ATTEND Family Medicine
DX: R07.9 Chest pain, unspecified (principal); I25.110 Atherosclerotic heart disease of native coronary artery with unstable angina pectoris; N17.9 Acute kidney failure, unspecified; I50.30 Unspecified diastolic (congestive) heart failure; J43.9 Emphysema, unspecified; F32.9 Major depressive disorder, single episode, unspecified; E11.65 Type 2 diabetes mellitus with hyperglycemia; Z86.73 Personal history of transient ischemic attack (TIA), and cerebral infarction without residual deficits; T43.206A Underdosing of unspecified antidepressants, initial encounter; Z91.138 Patient's unintentional underdosing of medication regimen for other reason

== ENCOUNTER → 2019-03-27 12:00 | Outpatient (CLI) | payer MEDICARE ==
[2019-03-04 09:28] VITALS: BMI 32.7
[~2019-03-27 12:00] MED LIST changes: +COLACE100 MG PO; +ISOSORBIDE MONO30 M1 PO; +MIRALAX17 GM PO; +ZETIA10 MG
--- NOTE | 2019-03-30 12:54 | ST ---
PATIENT:LA NENA MCKAY MEDICAL RECORD: [id number] SEX: M LOCATION:[facility] ORDER #: ADMISSION DATE: 03/27/19 AGE OF PATIENT: 73 REFERRING PHYSICIAN: INTERPRETING PHYSICIAN: TIN SCOTT MD DATE OF SERVICE: 03/27/2019 PROCEDURE: Nuclear stress test. INDICATION: Angina, coronary artery disease, previous multivessel PTCA stent, hypertension. Mr. Mckay was exercised on standard Lexiscan protocol with 33 mCi of sestamibi injected at peak stress, 11 mCi used previously for rest images. FINDINGS: Gated SPECT reveals decreased ejection fraction at 48% with decreased thickening and brightening throughout the inferior segments. SPECT imaging Cardiolite was used as myocardial perfusion agent. There is a large fixed perfusion defect inferiorly and apically. This is from a previous inferoapical myocardial infarction. There is no clear-cut evidence for reversibility. The remaining segments with homogeneous uptake at rest and stress. OVERALL IMPRESSION: This is a high risk abnormal nuclear stress test, large fixed perfusion defect inferiorly and apically. When comparing to the last nuclear stress test, there was only an apical fixed perfusion defect. There has been progression of this suggestive of another myocardial infarction in the interim with ongoing symptomatology and worsening myocardial infarction. We would proceed with coronary angiography as followup study. TRANSINT:[id number] Voice Confirmation ID: [id number] DOCUMENT ID: [id number] TIN SCOTT MD at 1254 CC: [id number] DICTATION DATE: 03/28/19 1223 CIRCUS AGENT: 03/29/19 0351 DEP CLI 03/27/[id number] [place] [address]
== END | disposition home or self-care (01) ==
LOC: D.HCCARDIO 12:00
PROVIDERS: ATTEND Internal Medicine Interventional Cardiology
DX: I25.119 Atherosclerotic heart disease of native coronary artery with unspecified angina pectoris (principal)

== ENCOUNTER 2019-08-17 08:48 | Observation (INO) | payer MEDICARE ==
[~2019-08-17] VITALS: Ht 177.8 cm; Wt 108.4 kg
[~2019-08-17 08:48] MED LIST changes: -LANTUS SOL100 UNIT/1 SC; +LANTUS SOLOSTAR3 ML
--- NOTE | 2019-08-17 08:59 | NUR ---
BS: 90
[2019-08-17 09:12] LABS: BASOPHILS 0.2 % (0-2); EOSINOPHILS 1.8 % (0-7); HEMATOCRIT 45.5 % (42.0-54.0); HEMOGLOBIN 14.9 g/dL (13.5-17.5); IMMATURE GRANULOCYTES 0.4 % (0-5); LYMPHOCYTES 8.6 % (15-50); MCH 28.3 pg (26.0-34.0); MCHC 32.7 g/dL (31.0-37.0); MCV 86.5 fL (80.0-100.0); MEAN PLATELET VOLUME 10.3 fL (7.4-10.4); MONOCYTES 6.9 % (2-11); NEUTROPHILS 82.1 % (40-80); PLATELET COUNT 195 10x3/uL (130-400); RBC 5.26 10x6/uL (4.20-6.10); RDW 14.6 % (11.5-14.5); WBC 13.2 10x3/uL (4.8-10.8)
[2019-08-17 09:22] LABS: APTT 32.3 SECONDS (22.8-39.4); INR 1.03 (0.85-1.17); PROTIME 13.5 SECONDS (11.6-15.0)
[2019-08-17 09:28] LABS: CALC OSMOLALITY 279 mosm/kg (275-300); CALCIUM 8.8 mg/dL (8.5-10.1); CARBON DIOXIDE 31.1 mmol/L (21.0-32.0); CHLORIDE - SERUM 105 mmol/L (98-107); CREATININE - SERUM 1.8 mg/dL (0.6-1.3); GLUCOSE 96 mg/dL (74-106); POTASSIUM - SERUM 4.2 mmol/L (3.5-5.1); SODIUM 139 mmol/L (136-145); UREA NITROGEN 17 mg/dL (7-18); eGFR NON AFRICAN AMERICAN 40 mL/min (90-120)
[2019-08-17 09:30] VITALS: BP 96/56
[2019-08-17 09:44] LABS: ALBUMIN 3.4 g/dL (3.4-5.0); ALKALINE PHOSPHATASE 58 U/L (30-120); ALT (SGPT) 17 U/L (10-68); BILIRUBIN - TOTAL 0.36 mg/dL (0.2-1.3); CKMB 1.1 U/L (0.0-3.6); CREATINE KINASE 87 UL (21-232); MAGNESIUM - SERUM 1.9 mg/dL (1.8-2.4); PROTEIN - SERUM 6.4 g/dL (6.4-8.2); TROPONIN-I < 0.017 ng/mL (0.000-0.060)
[2019-08-17 10:00] VITALS: BP 94/57
[2019-08-17 10:30] VITALS: BP 91/55
--- NOTE | 2019-08-17 11:45 | NUR ---
NEW PATIENT ADMIT FROM ER VIA WC ACCOMPANIED BY HOSPITAL STAFF AND SPOUSE. PATIENT TRANSFERRED TO [facility] BED WITHOUT DIFFICULTY. PATIENT APPEARS IN NO ACUTE DISTRESS. PATIENT ORIENTED TO ROOM AND CALL LIGHT. TELEMETRY PLACED. HISTORY AND ASSESMENT COMPLETED. ORTHOSTATIC VS FOLLOWS: STANDING: BP112/67, HR 82, R 19 T 98.0, 02 90% SITTING: BP 127/65 HR 78, R 19 02 92% LAYING: BP 124/57, HR 76, R 19 O2 95%. WILL CONTINUE WITH PLAN OF CARE. SR UPX 2 BED IN LOW POSITION AND CALL LIGHT IN REACH.
[2019-08-17 12:05] LABS: CKMB 2.4 U/L (0.0-3.6); CREATINE KINASE 83 UL (21-232); TROPONIN-I < 0.017 ng/mL (0.000-0.060)
[2019-08-17 12:56] VITALS: BP 127/65
[2019-08-17 13:58] LABS: MAGNESIUM - SERUM 1.9 mg/dL (1.8-2.4); THYROID STIMULATING HORMONE 1.56 uIU/mL (0.36-3.74)
--- NOTE | 2019-08-17 14:29 | NUR ---
PATIENT RESTING QUIETLY IN BED. WILL CONTINUE TO MONITOR. SR UPX 2 BED IN LOW POSITION AND CALL LIGHT IN REACH.
[2019-08-17 17:44] LABS: CKMB 1.5 U/L (0.0-3.6); CREATINE KINASE 100 UL (21-232)
[2019-08-17 18:09] LABS: TROPONIN-I < 0.017 ng/mL (0.000-0.060)
--- NOTE | 2019-08-17 19:10 | NUR ---
AWAKES EASILY and denies needs at this time BED LOW AND CALL LIGHT IS IN REACH
[2019-08-17 20:00] VITALS: BP 153/85
[2019-08-17 23:34] LABS: CKMB 1.1 U/L (0.0-3.6); CREATINE KINASE 91 UL (21-232); TROPONIN-I < 0.017 ng/mL (0.000-0.060)
--- NOTE | 2019-08-18 02:46 | NUR ---
PT SELF DCED IV WITH CATH INTACT REFUSED RESTART PER PT "IM GOING HOME IN THE MORNING"
[2019-08-18 04:00] VITALS: BP 143/76
--- NOTE | 2019-08-18 05:12 | NUR ---
I have reviewed this patient and I concur with the Shift Assessment completed by the Licensed Practical Nurse today this shift.
[2019-08-18 06:22] LABS: BASOPHILS 0.3 % (0-2); EOSINOPHILS 3.1 % (0-7); HEMATOCRIT 43.6 % (42.0-54.0); IMMATURE GRANULOCYTES 0.3 % (0-5); LYMPHOCYTES 23.8 % (15-50); MCH 27.9 pg (26.0-34.0); MCHC 32.1 g/dL (31.0-37.0); MEAN PLATELET VOLUME 10.3 fL (7.4-10.4); MONOCYTES 10.5 % (2-11); PLATELET COUNT 180 10x3/uL (130-400); RBC 5.01 10x6/uL (4.20-6.10); RDW 14.7 % (11.5-14.5)
[2019-08-18 06:41] LABS: CALCIUM 8.9 mg/dL (8.5-10.1); CARBON DIOXIDE 30.6 mmol/L (21.0-32.0); CREATININE - SERUM 1.8 mg/dL (0.6-1.3); POTASSIUM - SERUM 4.6 mmol/L (3.5-5.1)
--- NOTE | 2019-08-18 07:15 | NUR ---
RECEIVED PT IN BED EYES CLOSED RESP UNLABORED SKIN W/D COLOR WNL NAD NOTED WILL CONTINUE TO MONITOR
[2019-08-18 10:01] VITALS: BP 143/64
[2019-08-18 13:37] VITALS: Ht 177.8 cm; Wt 108.4 kg
[2019-08-18] MEDS ORDERED: COREG12.5 MG PO (14:14)
--- NOTE | 2019-08-18 15:50 | NUR ---
REVIEWED DISCHARGE INSTRUCTIONS WITH PT AND BOTH STATE UNDERSTANDING COPY GIVEN PT DISCHARGED HOME IN STABLE CONDITION WITH ALL PERSONAL BELONGINGS LEFT UNIT VIA W/C
== END 2019-08-18 15:50 | disposition home or self-care (01) ==
LOC: D.ER 08:48 → D.M2 10:38 → OBSVTIME 10:38 → D.M2 08-18 15:50
PROVIDERS: Emergency Medicine; Family Medicine; ADMIT Family Medicine; ATTEND Family Medicine
DX: R00.1 Bradycardia, unspecified (principal); I95.9 Hypotension, unspecified; E11.649 Type 2 diabetes mellitus with hypoglycemia without coma; N17.9 Acute kidney failure, unspecified; I50.32 Chronic diastolic (congestive) heart failure; I25.10 Atherosclerotic heart disease of native coronary artery without angina pectoris; J44.9 Chronic obstructive pulmonary disease, unspecified; J45.909 Unspecified asthma, uncomplicated; G47.33 Obstructive sleep apnea (adult) (pediatric); K59.00 Constipation, unspecified; M19.90 Unspecified osteoarthritis, unspecified site; F41.8 Other specified anxiety disorders; I44.0 Atrioventricular block, first degree